=== PATIENT | male | born 1990 ===

== ENCOUNTER 2020-07-31 00:33 | Emergency (ER) | payer MEDICAID, SELFPAY ==
[2020-07-31 00:55] VITALS: BP 119/87; PULSE 97; RESP 16; TEMP 37.3; O2SAT 97; BMI 33.4
--- NOTE | 2020-07-31 01:06 | XR_ITS ---
EXAMINATION: CHEST 1 VIEW CLINICAL INFORMATION: Cough. COMPARISON: 05/02/2019. TECHNIQUE: An AP view of the chest is provided. FINDINGS: The cardiac silhouette is not enlarged. The mediastinal and hilar contours are unremarkable. There are neither pleural effusions nor pneumothoraces. There is mild streaky left suprahilar airspace disease. The osseous structures are unremarkable. XR/XR chest 1V IMPRESSION: Mild streaky left suprahilar airspace disease. This is nonspecific and could correspond to atelectasis or developing infiltrate. Recommendation is for a followup chest series to be obtained following treatment and/or resolution of symptoms to assure resolution of this appearance.
--- NOTE | 2020-07-31 01:08 | ED.GENADULT ---
HPI - General Adult General Chief complaint: Upper Respiratory Symptoms Stated complaint: Covid symptoms Time Seen by Provider: 07/31/20 00:55 Source: patient Mode of arrival: ambulatory Limitations: no limitations History of Present Illness HPI narrative: Patient comes emergency room complaining body aches, bilateral eye burning and irritation, sore throat. Patient states that his asthma has not been well controlled over the last few days, using his inhaler almost every 4 hours with no significant relief. MD complaint: Flu-like symptoms, asthma exacerbation Related Data Previous Rx's Medication Instructions Recorded azithromycin 250 mg PO DAILY 4 Days #4 tab 07/31/20 prednisone 50 mg PO DAILY #4 tab 07/31/20 Allergies Allergy/AdvReac Type Severity Reaction Status Date / Time trazodone Allergy Unknown itching, Verified 12/24/15 00:00 rash Review of Systems Review of Systems: Constitutional : Patient complaining of generalized fatigue, malaise, no fever ENT/Mouth : No Hearing loss, No Ear Pain, No Nasal Congestion, No Sinus Pain, No Hoarseness, No sore throat, No Rhinorrhea, No Swallowing Difficulty Eyes: No Eye Pain, No Swelling, complaining of burning and bilateral Redness, No Foreign Body, No Discharge, No Vision Changes Cardiovascular : No Chest Pain, No SOB, No Dyspnea on Exertion, No Orthopnea, No Edema, No Palpitations Respiratory : Complaining of cough, frequent asthma exacerbations over the last couple of days No Smoke Exposure, No Dyspnea Gastrointestinal : No Nausea, No Vomiting, No Diarrhea, No Constipation, No abdominal Pain, No Hematochezia, No Melena Genitourinary : no irregular bleeding, No Dysuria, No Urinary Frequency, No Hematuria, No Urinary Incontinence, No Urgency, No Flank Pain, No Urinary Flow Changes, No Hesitancy Musculoskeletal : No joint pain, complaining of generalized Myalgias, No Joint Swelling Skin : No Skin Lesions, No rash Neuro : No Weakness, No Numbness, No Paresthesias, No Loss of Consciousness, No Dizziness, No Headache Psych : No Anxiety/Panic, No Depression, No SI/HI/AH/VH, No Social Issues, Heme/Lymph: No Bruising, No Bleeding,No Lymphadenopathy Endocrine : No Polyuria, No Polydipsia, No Temperature Intolerance PMF Past Medical History Medical History (Updated 07/31/20 @ 02:24 by Kelsey Lucero MD) Asthma HIV (human immunodeficiency virus infection) Social History Social History Alcohol intake: never Smoking Status: Unknown if ever smoked Advance Directives: No Physical Exam Vital Signs: Vital Signs: Last Vital Signs Temp 98.4 F 07/31/20 02:00 Pulse 79 07/31/20 02:00 Resp 14 07/31/20 02:00 BP 121/65 07/31/20 02:00 Pulse Ox 100 07/31/20 02:00 Body Mass Index 33.4 Appearance: Alert. Oriented X3. No acute distress. Eyes: Pupils equal, round and reactive to light. Conjunctival injection bilaterally ENT: Pharynx normal. Neck: Normal inspection. Neck supple. No lymph nodes noted. No crepitus CVS: Normal heart rate and rhythm. Pulses normal. Normal S1 and S2 Respiratory: No respiratory distress. Bilateral wheezing, fair air movement Abdomen: Soft and nontender. No rigidity. No distention. good BS x4 Skin: Skin warm and dry. Normal skin color. Normal skin turgor. Extremities: No lower extremity edema. No lower extremity edema. No Lacerations. No Rash Neuro: Oriented X 3. No motor deficit. No sensory deficit. Moving all extermities. No slurred speech. Course Course Course Narrative: Patient received 1 nebulization treatment and Solu-Medrol, patient feels better, oxygen saturation 99%, however he is still fairly wheezing. A 2nd nebulization is starting now. Influenza and COVID-19 results pending. Sign out given to Dr. Degroot. Disposition pending, likely discharge home Discharge Plan Discharge Clinical Impression: Asthma Qualifiers: Asthma severity: unspecified severity Asthma persistence: unspecified Asthma complication type: unspecified Qualified Code(s): J45.909 - Unspecified asthma, uncomplicated Upper respiratory infection Qualifiers: URI type: unspecified URI Qualified Code(s): J06.9 - Acute upper respiratory infection, unspecified Patient Disposition: Home, Self-Care Instructions: Asthma (ED) Additional Instructions: Please follow-up with your primary care physician tomorrow. If you have any worsening or new symptoms, please return to the emergency room or call 911 Prescriptions: New azithromycin 250 mg tablet 250 mg PO DAILY 4 Days Qty: 4 RF: 0 prednisone 50 mg tablet 50 mg PO DAILY Qty: 4 RF: 0
[2020-07-31] MEDS: Albuterol Sulfate (0.083%) 2.5 MG/3 ML VIAL.NEB 5 MG INHALE ×2 (01:55→02:46)
[2020-07-31] MEDS: methylPREDNISolone Sod Succ/PF 125 MG/2 ML VIAL IVPUSH (01:55)
[2020-07-31 02:00] VITALS: BP 121/65; PULSE 79; RESP 14; TEMP 36.9; O2SAT 100
[2020-07-31 02:17] VITALS: PULSE 88; O2SAT 97
[2020-07-31 02:42] LABS: Influenza A PCR NEGATIVE (Negative); Influenza B PCR NEGATIVE (Negative); Resp Syncy Virus RNA Qual PCR NEGATIVE (Negative); SARS COV2 PCR INHOUSE NEGATIVE (Negative)
[2020-07-31] MEDS: Azithromycin 500 MG TABLET PO (02:46)
[2020-07-31 02:49] VITALS: PULSE 90; RESP 22; O2SAT 99
[2020-07-31 03:59] VITALS: BP 104/35; PULSE 90; RESP 22; TEMP 36.9; O2SAT 95
[2020-07-31] MEDS: Magnesium Sulfate/H2O 2 GM/50 ML PIGGYBACK IV (04:11)
[2020-07-31] MEDS: Albuterol Sulfate 90 MCG 8 GM INHALER 2 PUFF INHALE (05:21)
== END 2020-07-31 05:35 | disposition home or self-care (01) ==
PROVIDERS: Emergency Provider Emergency Medicine
DX: M79.10 Myalgia, unspecified site (principal); H57.13 Ocular pain, bilateral; J45.909 Unspecified asthma, uncomplicated; J06.9 Acute upper respiratory infection, unspecified; Z20.828 Contact with and (suspected) exposure to other viral communicable diseases; Z21 Asymptomatic human immunodeficiency virus [HIV] infection status
CPT/HCPCS: 0241U; 71045; 96365; 96375; 99284; 99285; J2930; J3475

== ENCOUNTER 2020-10-04 12:33 | Outpatient (REF) | payer MEDICAID, SELFPAY | END 2020-10-04 12:34 | disposition home or self-care (01) | LOC: HO.LAB 12:33 | PROVIDERS: Visit Provider Internal Medicine | DX: Z20.822 Contact with and (suspected) exposure to COVID-19 (principal) | CPT/HCPCS: 36415; C9803; U0003; U0005 ==

== ENCOUNTER → 2021-02-26 20:28 | Outpatient (REF) | payer OTHER, SELFPAY | LOC: HO.SL 20:28 | PROVIDERS: Visit Provider Internal Medicine Geriatric Medicine | DX: G47.00 Insomnia, unspecified (principal); R06.83 Snoring; R40.0 Somnolence | CPT/HCPCS: 95810 ==

== ENCOUNTER 2021-04-16 20:20 | Emergency (ER) | payer OTHER, SELFPAY ==
--- NOTE | ~2021-04-16 | XR_ITS ---
EXAMINATION: XR CHEST CLINICAL INFORMATION: Cough COMPARISON: 07/31/2020 TECHNIQUE: Frontal view of the chest was obtained. FINDINGS: No significant abnormality is noted involving the heart, lungs, mediastinum, bony thorax or soft tissues. XR/XR chest 1V IMPRESSION: Unremarkable examination.
[2021-04-16 20:34] VITALS: BP 138/64; PULSE 93; RESP 18; TEMP 36.8; O2SAT 100; BMI 38.0
--- NOTE | 2021-04-16 21:45 | ED_ITS ---
HPI - URI/Sore Throat General Chief Complaint: Upper Respiratory Symptoms Stated Complaint: flu like Time Seen by Provider: 04/16/21 21:03 Source: patient Mode of arrival: ambulatory Limitations: no limitations History of Present Illness HPI Narrative: Patient with history of HIV with undetectable viral cough has not received COVID vaccine complaining of body aches shortness of breath for last 2- 3 days with frequent cough and postnasal drip with history of asthma using his inhaler without much relief Related Data Previous Rx's Medication Instructions Recorded albuterol sulfate 90 mcg/actuation 2 puff INHALATION Q6H PRN #18 g 07/31/20 aerosol inhaler (ProAir HFA) azithromycin 250 mg tablet 250 mg PO DAILY 4 Days #4 tab 07/31/20 ketorolac 0.5 % eye drops 1 drp OPHTHALMIC (EYE) QID #5 ml 07/31/20 prednisone 50 mg tablet 50 mg PO DAILY #4 tab 07/31/20 codeine 10 mg-guaifenesin 100 mg/5 10 ml PO Q4-6H PRN #237 ml 04/16/21 mL oral liquid prednisone 20 mg tablet 40 mg PO DAILY #10 tab 04/16/21 Allergies Allergy/AdvReac Type Severity Reaction Status Date / Time trazodone Allergy Unknown itching, Verified 12/24/15 00:00 rash Review of Systems Review of Systems: Yes all other systems are reviewed and are negative PMFSH Past Medical History Medical History Asthma HIV (human immunodeficiency virus infection) Surgical History No history of previous surgery Social History Social History Alcohol intake: never Advance Directives: No Advance Directives Information Provided: No Physical Exam Vital Signs: Vital Signs: Last Vital Signs Temp 98.7 F 04/16/21 22:25 Pulse 89 04/16/21 22:25 Resp 18 04/16/21 22:25 BP 123/67 04/16/21 22:25 Pulse Ox 94 04/16/21 22:25 Body Mass Index 38.0 Appearance: Alert. Oriented X3. No acute distress. ENT: Pharynx normal. Oral Mucosa moist nasal turbinates inflamed with clear discharge Neck: Normal inspection. Neck supple. CVS: Normal heart rate and rhythm. Pulses normal. Respiratory: No respiratory distress. Equal air entry bilateral, no wheezing/rales/rhonchi Abdomen: Soft and nontender. Bowel sounds are present, no mass palpable, no CVA tenderness Skin: Skin warm and dry. Normal skin color. Normal skin turgor. Extremities: No lower extremity edema. No calf tenderness Neuro: Oriented X 3. MDM - URI/Sore Throat Lab Data Attestation: I reviewed the patient's lab results. Labs: Lab Results 04/16/21 Range/Units 21:27 COVID-19 (JACKIE) Negative (Negative) COVID-19 Clin Com See Note Discharge Plan Discharge Clinical Impression: Acute asthmatic bronchitis Patient Disposition: Home, Self-Care Instructions: Asthma (ED) Additional Instructions: Continue your inhaler Take prednisone as advised Prescriptions: New prednisone 20 mg tablet 40 mg PO DAILY Qty: 10 RF: 0 codeine-guaifenesin 10-100 mg/5 mL liquid 10 ml PO Q4-6H PRN (Reason: cough) Qty: 237 RF: 0 No Action azithromycin 250 mg tablet 250 mg PO DAILY 4 Days Qty: 4 RF: 0 prednisone 50 mg tablet 50 mg PO DAILY Qty: 4 RF: 0 ketorolac 0.5 % drops 1 drp ophthalmic (eye) QID Qty: 5 RF: 0 albuterol sulfate [ProAir HFA] 90 mcg/actuation HFA aerosol inhaler 2 puff inhalation Q6H PRN (Reason: shortness of breath or wheezing) Qty: 18 RF: 2 Interventions: ED Discharge Assessment Last Done: 04/16/21 23:10 Discharge Date/Time: 04/16/21 23:11
[2021-04-16 22:25] VITALS: BP 123/67; PULSE 89; RESP 18; TEMP 37.1; O2SAT 94
[2021-04-16 22:52] LABS: COVID-19 Test Negative (Negative); IDNOW Serial# 9DD0AD1C
== END 2021-04-16 23:11 | disposition home or self-care (01) ==
PROVIDERS: Emergency Medicine; Emergency Provider Internal Medicine; PCP Internal Medicine Geriatric Medicine
DX: J45.909 Unspecified asthma, uncomplicated (principal); Z20.822 Contact with and (suspected) exposure to COVID-19; B20 Human immunodeficiency virus [HIV] disease
CPT/HCPCS: 36415; 71045; 87635; 99283

== ENCOUNTER 2021-07-15 10:07 | Emergency (ER) | payer OTHER, SELFPAY ==
--- NOTE | ~2021-07-15 | XR_ITS ---
EXAMINATION: XR CHEST CLINICAL INFORMATION: Cough, shortness of breath COMPARISON: Chest radiographs 04/16/2021, 07/31/2020, 05/02/2019 TECHNIQUE: 2 views of the chest were obtained. FINDINGS: The lungs are clear and there is no airspace consolidation or groundglass opacity. The costophrenic sulci are well-defined. No effusion. The heart is normal in size. The hilar and mediastinal contours and bony structures are unremarkable. XR/XR chest 2V IMPRESSION: Unremarkable examination.
--- NOTE | ~2021-07-15 | US_ITS ---
EXAMINATION: US ABDOMEN COMPLETE CLINICAL INFORMATION: Upper abdominal pain, nausea and vomiting. COMPARISON: None TECHNIQUE: Real-time imaging of the abdominal viscera. FINDINGS: PANCREAS: The head and body the pancreas are normal. The tail is not well visualized due to bowel gas. ABDOMINAL AORTA: The proximal, mid, and distal segments are normal in caliber. INFERIOR VENA CAVA: Visualized portions are normal. LIVER: Normal. The liver is normal in size. Parenchymal echogenicity is normal. No focal hepatic lesion. There is no intrahepatic biliary duct dilatation seen. GALLBLADDER: Normal. The gallbladder is physiologically distended without evidence of stones, sludge, polyps, wall thickening or pericholecystic fluid. COMMON BILE DUCT: Normal in caliber measuring 0.3 cm in diameter. RIGHT KIDNEY: Normal. No hydronephrosis. No renal calculi or focal parenchymal lesions. The kidney measures 10 cm in maximum dimension. LEFT KIDNEY: Normal. No hydronephrosis. No renal calculi or focal parenchymal lesions. The kidney measures 11 cm in maximum dimension. SPLEEN: Normal. The spleen measures 11 cm in maximum dimension. FREE FLUID: None. US/US abdomen complete IMPRESSION: Limited visualization of the tail of the pancreas otherwise unremarkable exam.
[2021-07-15 11:03] VITALS: BP 108/67; PULSE 72; RESP 18; TEMP 36.8; O2SAT 100; BMI 36.9
[2021-07-15 12:27] LABS: Basophils Percent Auto 0.5 % (0-2); Eosinophils Absolute Auto 0.2 X10*3/uL (0.0-0.4); Eosinophils Percent Auto 4.6 % (0-4); Hematocrit 38.7 % (42.0-52.0); Hemoglobin 13.5 g/dl (14.0-18.0); Imm Gran Abs Auto 0.01 X10*3/uL (0.00-0.03); Imm Gran Pct Auto 0.2 % (0.0-0.4); Lymphocytes Absolute Auto 1.5 X10*3/uL (1.2-4.9); Lymphocytes Percent Auto 36.8 % (20-40); MANUAL DIFF FLAG NO; Mean Corpuscular HGB Conc 34.9 g/dl (31.0-36.0); Mean Corpuscular Hemoglobin 29.9 pg (27.0-33.0); Mean Corpuscular Volume 85.6 fL (80.0-98.0); Mean Platelet Volume 9.1 fL (9.4-12.4); Monocytes Absolute Auto 0.3 X10*3/uL (0.1-1.2); Monocytes Percent Auto 7.7 % (2-11); Neutrophils Absolute Auto 2.1 x10*3/uL (2.0-8.3); Neutrophils Percent Auto 50.2 % (45-73); Platelet Count 229 X10*3/uL (160-400); Red Blood Count 4.52 X10*6/uL (4.60-5.80); Red Cell Distribution Width 12.9 % (11.0-16.0); White Blood Count 4.2 X10*3/uL (4.8-10.8)
[2021-07-15 12:45] LABS: Alanine Aminotransferase 17 U/L (0-40); Albumin Level 4.1 g/dL (3.5-5.0); Alkaline Phosphatase 117 U/L (39-117); Anion Gap 10 (12-20); Aspartate Amino Transferase 16 U/L (5-37); Bilirubin Total 0.6 mg/dL (0.0-1.0); Blood Urea Nitrogen 16 mg/dL (9-16); Calcium 8.5 mg/dL (8.4-10.2); Carbon Dioxide 19 mmol/L (22-29); Chloride 115 mmol/L (96-108); Creatinine Clr Calc Pharmacy 150.4; Estimated Glomerular Filt Rate > 60; Glucose Random 87 mg/dL (60-115); Potassium 3.9 mmol/L (3.3-5.1); Sodium 140 mmol/L (135-145)
[2021-07-15 12:48] LABS: COVID-19 Test Negative (Negative)
[2021-07-15 12:54] LABS: Appearance Urine CLEAR; Color Urine YELLOW; Glucose Urine UA NEG (NEG); Leukocyte Esterase Urine NEG (NEG); Nitrite Urine NEG (NEG); PH 7.5 (5.0-8.0); Specific Gravity - Urine 1.015 (1.005-1.025); Urine Blood NEG (NEG); Urine Ketones NEG (NEG); Urine Protein NEG (NEG-TRACE)
[2021-07-15] MEDS: LORazepam 1 MG TABLET PO (15:50)
[2021-07-15] MEDS: Acetaminophen 325 MG TABLET 975 MG PO (15:50)
[2021-07-15 15:53] VITALS: BP 124/68; PULSE 60; RESP 20; TEMP 36; O2SAT 98
--- NOTE | 2021-07-15 17:07 | ED.ABDPAIN ---
HPI - Abdominal Pain General Chief Complaint: Abdominal Pain Stated Complaint: N/V/D Time Seen by Provider: 07/15/21 15:03 Source: patient Mode of arrival: ambulatory Limitations: no limitations History of Present Illness HPI narrative: 30-year-old male with a past medical history of anxiety, asthma and HIV presenting to the ED with complaints of nausea/vomiting / diarrhea and abdominal pain at the epigastric area worse with eating for the past few days worse today. He also reports he has been having muscle aches and itchy throat and has had an episode of shaking yesterday. He reports that years ago he would get these episodes and he was unsure if they were seizures would take some medications to calm him down. I asked him if this medication was Ativan for anxiety and he reported that exactly with the medication was. He denies any fevers, chills, dizziness, headaches, neck pain /stiffness, trouble swallowing or breathing, ear pain, productive cough, chest pain, dyspnea on exertion, orthopnea, palpitations, radiation of the abdominal pain, back pain, rashes, dysuria, hematuria, abnormal penile discharge, recent travel or sick contacts or any other symptoms complaints or concerns at this time. MD elicited complaint: abdominal pain Pertinent past history: other ( See above) Onset (ago): day(s) ( few days worse today) Pain Consistency: constant Location: epigastric Severity: moderate Quality: cramping and aching Radiation: none Migration to: no migration Exacerbating factors: eating Relieving factors: nothing Associated symptoms: nausea, vomiting, diarrhea and other ( see above) Related Data Previous Rx's Medication Instructions Recorded albuterol sulfate 90 mcg/actuation 2 puff INHALATION Q6H PRN #18 g 07/31/20 aerosol inhaler (ProAir HFA) azithromycin 250 mg tablet 250 mg PO DAILY 4 Days #4 tab 07/31/20 ketorolac 0.5 % eye drops 1 drp OPHTHALMIC (EYE) QID #5 ml 07/31/20 prednisone 50 mg tablet 50 mg PO DAILY #4 tab 07/31/20 codeine 10 mg-guaifenesin 100 mg/5 10 ml PO Q4-6H PRN #237 ml 04/16/21 mL oral liquid prednisone 20 mg tablet 40 mg PO DAILY #10 tab 04/16/21 acetaminophen 300 mg-codeine 30 mg 1 tab PO Q8H PRN #10 tab 07/15/21 tablet lorazepam 1 mg tablet (Ativan) 1 mg PO TID PRN #10 tab 07/15/21 ondansetron HCl 4 mg tablet 4 mg PO Q8H PRN #14 tab 07/15/21 (Zofran) Allergies Allergy/AdvReac Type Severity Reaction Status Date / Time trazodone Allergy Unknown itching, Verified 07/15/21 11:03 rash Review of Systems Review of Systems Constitutional : No Weight loss, No Fever, No Chills, No Night Sweats, No Fatigue, No Malaise ENT/Mouth : No Hearing loss, No Ear Pain, No Nasal Congestion, No Sinus Pain, No Hoarseness, + sore throat, No Rhinorrhea, No Swallowing Difficulty Eyes: No Eye Pain, No Swelling, No Redness, No Foreign Body, No Discharge, No Vision Changes Cardiovascular : No Chest Pain, No SOB, No Dyspnea on Exertion, No Orthopnea, No Edema, No Palpitations Respiratory : + Cough, No Sputum, No Wheezing, No Smoke Exposure, No Dyspnea Gastrointestinal : + Nausea, + Vomiting, + Diarrhea, No Constipation, + abdominal Pain, No Hematochezia, No Melena Genitourinary : no irregular bleeding, No Dysuria, No Urinary Frequency, No Hematuria, No Urinary Incontinence, No Urgency, No Flank Pain, No Urinary Flow Changes, No Hesitancy Musculoskeletal : No joint pain, No Myalgias, No Joint Swelling Skin : No Skin Lesions, No rash Neuro : No Weakness, No Numbness, No Paresthesias, No Loss of Consciousness, No Dizziness, No Headache Psych : + Anxiety/Panic, No Depression, No SI/HI/AH/VH, No Social Issues, Heme/Lymph: No Bruising, No Bleeding,No Lymphadenopathy Endocrine : No Polyuria, No Polydipsia, No Temperature Intolerance Yes all other systems are reviewed and are negative Physical Exam Vital Signs: Vital Signs: Last Vital Signs Temp 96.8 F 07/15/21 15:53 Pulse 60 07/15/21 15:53 Resp 20 07/15/21 15:53 BP 124/68 07/15/21 15:53 Pulse Ox 98 07/15/21 15:53 BMI result Body Mass Index 36.9 vital signs have been reviewed as normal and appeared to be correct. Blood pressure normal. Heart rate normal. Respiration rate normal. Temperature normal. Oxygen saturation normal. Appearance: Alert. Oriented X3. No acute distress. Head: Normal external exam. Normocephalic. Eyes: PERRLA. EOMI. Conjunctiva and sclera normal. Eyelids normal. ENT: Pharynx normal. Uvula midline. Moist mucous membranes. No trismus noted. No drooling noted. No muffled voice noted. Neck: Normal inspection. Neck supple. FROM. No adenopathy. No meningeal signs. CVS: Normal heart rate and rhythm. Heart sound normal. No murmurs noted. Pulses normal throughout. Respiratory: No respiratory distress. Painless inspiration. Breath sounds normal. No wheezes/rales/rhonchi noted. Chest nontender. No accessory muscle usage noted or decreased air movement noted. Abdomen: Soft and mild tenderness up patient's epigastric area. Nondistended. No guarding. No rigidity. Bowel sounds normal in all 4 quadrants. No distention noted. No organomegaly noted. No visible injury noted. No rebound tenderness. Negative Rovsing sign. Negative obturator's sign. Negative psoas sign. Negative [place] sign. Back: No CVA tenderness. Full range of motion noted. Skin: Skin warm and dry. Normal skin color. Normal skin turgor. No rashes/lesions/lacerations noted. Extremities: Extremities exhibit normal range of motion. Extremities nontender. Neuro: Oriented X 3. No motor deficit. No sensory deficit. Reflexes normal. Normal steady gait. Course Course Course Narrative: 30-year-old male with a past medical history of anxiety, asthma and HIV presenting to the ED with complaints of nausea/vomiting / diarrhea and abdominal pain at the epigastric area worse with eating for the past few days worse today. He also reports he has been having muscle aches and itchy throat and has had an episode of shaking yesterday. He reports that years ago he would get these episodes and he was unsure if they were seizures would take some medications to calm him down. I asked him if this medication was Ativan for anxiety and he reported that exactly with the medication was. Labs obtained and patient with a white blood cell count of 4000. Mild anemia. Chloride 115. Carbon dioxide 19. Anion gap 10. Otherwise all other labs are within normal limits. UA within normal limits no evidence of UTI. COVID swab negative. Chest x-ray within normal limits no acute processes noted. Abdominal ultrasound complete within normal limits no acute processes are noted. Therefore patient most likely viral syndrome / gastroenteritis / bronchitis. Although I did offer a CT scan abdomen pelvis to evaluate for any other acute processes although patient declined this reports that he just wants to go home and eat and he is not having any pain anywhere else in his abdomen. Therefore Will DC home with symptomatic treatment instructions return if any new or worsening symptoms to follow-up with primary care provider. Patient understands agrees with this plan. MDM - Abdominal Pain Medical Records Attestation: I reviewed the patient's medical records. Lab Data Attestation: I reviewed the patient's lab results. Result diagrams: 07/15/21 12:20 07/15/21 12:20 Labs: Lab Results 07/15/21 07/15/21 07/15/21 Range/Units 12:19 12:20 12:20 WBC 4.2 L (4.8-10.8) X10*3/uL RBC 4.52 L (4.60-5.80) X10*6/uL Hgb 13.5 L (14.0-18.0) g/dl Hct 38.7 L (42.0-52.0) % MCV 85.6 (80.0-98.0) fL MCH 29.9 (27.0-33.0) pg MCHC 34.9 (31.0-36.0) g/dl RDW 12.9 (11.0-16.0) % Plt Count 229 (160-400) X10*3/uL MPV 9.1 L (9.4-12.4) fL Immature Gran % (Auto) 0.2 (0.0-0.4) % Neut % (Auto) 50.2 (45-73) % Lymph % (Auto) 36.8 (20-40) % [place] % (Auto) 7.7 (2-11) % Eos % (Auto) 4.6 H (0-4) % Baso % (Auto) 0.5 (0-2) % Lymph # (Auto) 1.5 (1.2-4.9) X10*3/uL [place] # (Auto) 0.3 (0.1-1.2) X10*3/uL Eos # (Auto) 0.2 (0.0-0.4) X10*3/uL Baso # (Auto) 0.0 (0.0-0.2) X10*3/uL Abs Immat Gran (auto) 0.01 (0.00-0.03) X10*3/uL Absolute Neuts (auto) 2.1 (2.0-8.3) x10*3/uL Absolute Nucleated RBC 0.000 (0.0-0.012) X10*3/uL Nucleated RBC % (auto) 0.0 (0.0-0.2) /100WBC Sodium 140 (135-145) mmol/L Potassium 3.9 (3.3-5.1) mmol/L Chloride 115 H (96-108) mmol/L Carbon Dioxide 19 L (22-29) mmol/L Anion Gap 10 L (12-20) BUN 16 (9-16) mg/dL Creatinine 0.88 (0.5-1.4) mg/dL Estim Creat Clear Calc 150.4 Estimated GFR > 60 Random Glucose 87 (60-115) mg/dL Calcium 8.5 (8.4-10.2) mg/dL Total Bilirubin 0.6 (0.0-1.0) mg/dL AST 16 (5-37) U/L ALT 17 (0-40) U/L Alkaline Phosphatase 117 (39-117) U/L Total Protein 6.0 L (6.5-8.0) g/dL Albumin 4.1 (3.5-5.0) g/dL Urine Color Urine Appearance Urine pH (5.0-8.0) Ur Specific [place] (1.005-1.025) Urine Protein (NEG-TRACE) MG/DL Urine Glucose (UA) (NEG) MG/DL Urine Ketones (NEG) MG/DL Urine Blood (NEG) Urine Nitrite (NEG) Ur Leukocyte Esterase (NEG) COVID-19 (JACKIE) Negative (Negative) COVID-19 Clin Com See Note 07/15/21 Range/Units 12:41 WBC (4.8-10.8) X10*3/uL RBC (4.60-5.80) X10*6/uL Hgb (14.0-18.0) g/dl Hct (42.0-52.0) % MCV (80.0-98.0) fL MCH (27.0-33.0) pg MCHC (31.0-36.0) g/dl RDW (11.0-16.0) % Plt Count (160-400) X10*3/uL MPV (9.4-12.4) fL Immature Gran % (Auto) (0.0-0.4) % Neut % (Auto) (45-73) % Lymph % (Auto) (20-40) % [place] % (Auto) (2-11) % Eos % (Auto) (0-4) % Baso % (Auto) (0-2) % Lymph # (Auto) (1.2-4.9) X10*3/uL [place] # (Auto) (0.1-1.2) X10*3/uL Eos # (Auto) (0.0-0.4) X10*3/uL Baso # (Auto) (0.0-0.2) X10*3/uL Abs Immat Gran (auto) (0.00-0.03) X10*3/uL Absolute Neuts (auto) (2.0-8.3) x10*3/uL Absolute Nucleated RBC (0.0-0.012) X10*3/uL Nucleated RBC % (auto) (0.0-0.2) /100WBC Sodium (135-145) mmol/L Potassium (3.3-5.1) mmol/L Chloride (96-108) mmol/L Carbon Dioxide (22-29) mmol/L Anion Gap (12-20) BUN (9-16) mg/dL Creatinine (0.5-1.4) mg/dL Estim Creat Clear Calc Estimated GFR Random Glucose (60-115) mg/dL Calcium (8.4-10.2) mg/dL Total Bilirubin (0.0-1.0) mg/dL AST (5-37) U/L ALT (0-40) U/L Alkaline Phosphatase (39-117) U/L Total Protein (6.5-8.0) g/dL Albumin (3.5-5.0) g/dL Urine Color YELLOW Urine Appearance CLEAR Urine pH 7.5 (5.0-8.0) Ur Specific [place] 1.015 (1.005-1.025) Urine Protein NEG (NEG-TRACE) MG/DL Urine Glucose (UA) NEG (NEG) MG/DL Urine Ketones NEG (NEG) MG/DL Urine Blood NEG (NEG) Urine Nitrite NEG (NEG) Ur Leukocyte Esterase NEG (NEG) COVID-19 (JACKIE) (Negative) COVID-19 Clin Com Imaging Data Chest x-ray: Attestation: I personally reviewed and interpreted this imaging study as follows: Radiologist's impression: FINDINGS: The lungs are clear and there is no airspace consolidation or groundglass opacity. The costophrenic sulci are well-defined. No effusion. The heart is normal in size. The hilar and mediastinal contours and bony structures are unremarkable. XR/XR chest 2V IMPRESSION: Unremarkable examination. abdominal US: Attestation: I personally reviewed and interpreted this imaging study as follows: Radiologist's impression: FINDINGS: PANCREAS: The head and body the pancreas are normal. The tail is not well visualized due to bowel gas. ABDOMINAL AORTA: The proximal, mid, and distal segments are normal in caliber. INFERIOR VENA CAVA: Visualized portions are normal. LIVER: Normal. The liver is normal in size. Parenchymal echogenicity is normal. No focal hepatic lesion. There is no intrahepatic biliary duct dilatation seen. GALLBLADDER: Normal. The gallbladder is physiologically distended without evidence of stones, sludge, polyps, wall thickening or pericholecystic fluid. COMMON BILE DUCT: Normal in caliber measuring 0.3 cm in diameter. RIGHT KIDNEY: Normal. No hydronephrosis. No renal calculi or focal parenchymal lesions. The kidney measures 10 cm in maximum dimension. LEFT KIDNEY: Normal. No hydronephrosis. No renal calculi or focal parenchymal lesions. The kidney measures 11 cm in maximum dimension. SPLEEN: Normal. The spleen measures 11 cm in maximum dimension. FREE FLUID: None. US/US abdomen complete IMPRESSION: Limited visualization of the tail of the pancreas otherwise unremarkable exam. Discharge Plan Discharge Clinical Impression: Gastroenteritis, Abdominal pain, acute, epigastric, Nausea & vomiting, Bronchitis Patient Disposition: Home, Self-Care Instructions: Gastroenteritis (ED), Acute Bronchitis (ED), Acute Nausea and Vomiting (ED), Epigastric Pain (ED) Prescriptions: New ondansetron HCl [Zofran] 4 mg tablet 4 mg PO Q8H PRN (Reason: nausea and vomiting) Qty: 14 RF: 0 acetaminophen-codeine 300-30 mg tablet 1 tab PO Q8H PRN (Reason: pain) Qty: 10 RF: 0 lorazepam [Ativan] 1 mg tablet 1 mg PO TID PRN (Reason: anxiety) Qty: 10 RF: 0 No Action azithromycin 250 mg tablet 250 mg PO DAILY 4 Days Qty: 4 RF: 0 prednisone 50 mg tablet 50 mg PO DAILY Qty: 4 RF: 0 ketorolac 0.5 % drops 1 drp ophthalmic (eye) QID Qty: 5 RF: 0 albuterol sulfate [ProAir HFA] 90 mcg/actuation HFA aerosol inhaler 2 puff inhalation Q6H PRN (Reason: shortness of breath or wheezing) Qty: 18 RF: 2 prednisone 20 mg tablet 40 mg PO DAILY Qty: 10 RF: 0 codeine-guaifenesin 10-100 mg/5 mL liquid 10 ml PO Q4-6H PRN (Reason: cough) Qty: 237 RF: 0 Referrals: Lisette,MD Dwaine [Primary Care Provider] - 2 days Stand Alone Forms: Work/School Release Print Language: Bengali [facility] Past Medical History Attestation statement: The following information was validated with the patient. Medical History Asthma HIV (human immunodeficiency virus infection) Surgical History No history of previous surgery Social History Social History Alcohol intake: never Patient Tobacco Use Status: Current everyday Tobacco user Use of substances other than those prescribed or required for medical reasons: No Advance Directives: No Advance Directives Information Provided: Yes
== END 2021-07-15 17:33 | disposition home or self-care (01) ==
PROVIDERS: Emergency Provider Emergency Medicine; PCP Internal Medicine Geriatric Medicine
DX: K52.9 Noninfective gastroenteritis and colitis, unspecified (principal); J40 Bronchitis, not specified as acute or chronic; Z20.822 Contact with and (suspected) exposure to COVID-19; R11.2 Nausea with vomiting, unspecified; R10.13 Epigastric pain; B20 Human immunodeficiency virus [HIV] disease
CPT/HCPCS: 36415; 71046; 76700; 80053; 81003; 85025; 87635; 99284

== ENCOUNTER 2021-07-17 12:40 | Outpatient (REF) | payer OTHER, SELFPAY ==
[2021-07-17 15:29] LABS: COVID-19 Test Negative (Negative)
== END 2021-07-17 12:41 | disposition home or self-care (01) ==
LOC: HO.LAB 12:40
PROVIDERS: Visit Provider Internal Medicine
DX: Z20.822 Contact with and (suspected) exposure to COVID-19 (principal)
CPT/HCPCS: 36415; 87635; C9803

== ENCOUNTER 2021-08-10 03:11 | Emergency (ER) | payer OTHER, SELFPAY ==
[2021-08-10 03:15] VITALS: BMI 30.7
--- NOTE | 2021-08-10 03:46 | ED.ANXIETY ---
HPI - Anxiety General Chief Complaint: Anxiety Stated Complaint: SEIZURE AND ANXIETY ATTACK PER EMS Time Seen by Provider: 08/10/21 03:42 Source: patient and EMS Mode of arrival: EMS Limitations: no limitations History of Present Illness HPI narrative: Patient comes to the emergency room complaining of ID on a possible seizure. Patient states that he has been drinking, states that he is very emotional because it is the 1st time that he has an ankle bracelet and is unable to celebrate new year's with his family. Patient states that he has seizure, urinated in his pants. Family members state that patient had another seizure while EMS was present. EMS states that the patient was awake, alert and talking during the ?seizure?. At this time, patient states that he feels very tired and very emotional. Patient states that his hands and feet bilaterally feel crampy. Patient states that he has had seizures in the past and that the sensation he has after a seizure, takes a few hours for her hands and feet to relax. Related Data Previous Rx's Medication Instructions Recorded albuterol sulfate 90 mcg/actuation 2 puff INHALATION Q6H PRN #18 g 07/31/20 aerosol inhaler (ProAir HFA) azithromycin 250 mg tablet 250 mg PO DAILY 4 Days #4 tab 07/31/20 ketorolac 0.5 % eye drops 1 drp OPHTHALMIC (EYE) QID #5 ml 07/31/20 prednisone 50 mg tablet 50 mg PO DAILY #4 tab 07/31/20 codeine 10 mg-guaifenesin 100 mg/5 10 ml PO Q4-6H PRN #237 ml 04/16/21 mL oral liquid prednisone 20 mg tablet 40 mg PO DAILY #10 tab 04/16/21 acetaminophen 300 mg-codeine 30 mg 1 tab PO Q8H PRN #10 tab 07/15/21 tablet lorazepam 1 mg tablet (Ativan) 1 mg PO TID PRN #10 tab 07/15/21 ondansetron HCl 4 mg tablet 4 mg PO Q8H PRN #14 tab 07/15/21 (Zofran) Allergies Allergy/AdvReac Type Severity Reaction Status Date / Time trazodone Allergy Unknown itching, Verified 07/15/21 11:03 rash Review of Systems Review of Systems: Constitutional : No Weight loss, No Fever, No Chills, No Night Sweats, No Fatigue, No Malaise ENT/Mouth : No Hearing loss, No Ear Pain, No Nasal Congestion, No Sinus Pain, No Hoarseness, No sore throat, No Rhinorrhea, No Swallowing Difficulty Eyes: No Eye Pain, No Swelling, No Redness, No Foreign Body, No Discharge, No Vision Changes Cardiovascular : No Chest Pain, No SOB, No Dyspnea on Exertion, No Orthopnea, No Edema, No Palpitations Respiratory : No Cough, No Sputum, No Wheezing, No Smoke Exposure, No Dyspnea Gastrointestinal : No Nausea, No Vomiting, No Diarrhea, No Constipation, No abdominal Pain, No Hematochezia, No Melena Genitourinary : no irregular bleeding, No Dysuria, No Urinary Frequency, No Hematuria, No Urinary Incontinence, No Urgency, No Flank Pain, No Urinary Flow Changes, No Hesitancy Musculoskeletal : No joint pain, No Myalgias, No Joint Swelling Skin : No Skin Lesions, No rash Neuro : No Weakness, No Numbness, No Paresthesias, No Loss of Consciousness, No Dizziness, No Headache complaining of a stress-induced seizure. Psych : Complaining of anxiety, panic attack, No Depression, No SI/HI/AH/VH, No Social Issues, Heme/Lymph: No Bruising, No Bleeding,No Lymphadenopathy Endocrine : No Polyuria, No Polydipsia, No Temperature Intolerance PMFSH Past Medical History Medical History Asthma HIV (human immunodeficiency virus infection) Surgical History No history of previous surgery Social History Social History Alcohol intake: never Patient Tobacco Use Status: Current everyday Tobacco user Advance Directives: No Physical Exam Vital Signs: Vital Signs: Last Vital Signs Temp 97.8 F 08/10/21 03:47 Pulse 96 08/10/21 03:47 Resp 18 08/10/21 03:47 BP 127/80 08/10/21 03:47 Pulse Ox 96 08/10/21 03:47 BMI result Body Mass Index 30.7 Const: Other: Appearance: Alert. Oriented X3. No acute distress. Eyes: Pupils equal, round and reactive to light. ENT: Pharynx normal. Neck: Normal inspection. Neck supple. No lymph nodes noted. No crepitus CVS: Normal heart rate and rhythm. Pulses normal. Normal S1 and S2 Respiratory: No respiratory distress. Breath sounds normal. No Wheezing. No rales Abdomen: Soft and nontender. No rigidity. No distention. good BS x4 Skin: Skin warm and dry. Normal skin color. Normal skin turgor. Extremities: No lower extremity edema. No lower extremity edema. No Lacerations. No Rash Neuro: Oriented X 3. No motor deficit. No sensory deficit. Moving all extermities. No slurred speech. Cranial nerves 2-12 grossly intact Psych: Teary, anxious Course Course Course Narrative: Patient's lactic acidosis is likely secondary due to a possible seizure that the patient may have had versus secondary to alcohol consumption. At this time sepsis not suspected. Patient is able to ambulate unassisted. Patient did not provide a urine sample. Patient instructed to follow-up with his primary care physician and neurologist. Patient states that he has not used any medication for seizure for over a year. MDM - Anxiety Lab Data Result diagrams: 08/10/21 04:02 08/10/21 04:02 Labs: Lab Results 08/10/21 08/10/21 08/10/21 Range/Units 04:02 04:02 04:02 WBC 4.5 L (4.8-10.8) X10*3/uL RBC 4.76 (4.60-5.80) X10*6/uL Hgb 14.2 (14.0-18.0) g/dl Hct 40.4 L (42.0-52.0) % MCV 84.9 (80.0-98.0) fL MCH 29.8 (27.0-33.0) pg MCHC 35.1 (31.0-36.0) g/dl RDW 12.9 (11.0-16.0) % Plt Count 249 (160-400) X10*3/uL MPV 9.3 L (9.4-12.4) fL Immature Gran % (Auto) 0.0 (0.0-0.4) % Neut % (Auto) 42.9 L (45-73) % Lymph % (Auto) 44.0 H (20-40) % [place] % (Auto) 8.4 (2-11) % Eos % (Auto) 4.0 (0-4) % Baso % (Auto) 0.7 (0-2) % Lymph # (Auto) 2.0 (1.2-4.9) X10*3/uL [place] # (Auto) 0.4 (0.1-1.2) X10*3/uL Eos # (Auto) 0.2 (0.0-0.4) X10*3/uL Baso # (Auto) 0.0 (0.0-0.2) X10*3/uL Abs Immat Gran (auto) 0.00 (0.00-0.03) X10*3/uL Absolute Neuts (auto) 1.9 L (2.0-8.3) x10*3/uL Absolute Nucleated RBC 0.000 (0.0-0.012) X10*3/uL Nucleated RBC % (auto) 0.0 (0.0-0.2) /100WBC Sodium 141 (135-145) mmol/L Potassium 3.6 (3.3-5.1) mmol/L Chloride 113 H (96-108) mmol/L Carbon Dioxide 18 L (22-29) mmol/L Anion Gap 14 (12-20) BUN 12 (9-16) mg/dL Creatinine 1.13 (0.5-1.4) mg/dL Estim Creat Clear Calc 100.2 Estimated GFR > 60 Random Glucose 87 (60-115) mg/dL Lactic Acid 2.5 H* (0.5-2.0) mmol/L Calcium 8.8 (8.4-10.2) mg/dL Total Bilirubin 0.6 (0.0-1.0) mg/dL Direct Bilirubin 0.2 (0.0-0.5) mg/dL AST 13 (5-37) U/L ALT 14 (0-40) U/L Alkaline Phosphatase 154 H D (39-117) U/L Total Protein 6.5 (6.5-8.0) g/dL Albumin 4.5 (3.5-5.0) g/dL Ethyl Alcohol mg/dL 08/10/21 Range/Units 04:02 WBC (4.8-10.8) X10*3/uL RBC (4.60-5.80) X10*6/uL Hgb (14.0-18.0) g/dl Hct (42.0-52.0) % MCV (80.0-98.0) fL MCH (27.0-33.0) pg MCHC (31.0-36.0) g/dl RDW (11.0-16.0) % Plt Count (160-400) X10*3/uL MPV (9.4-12.4) fL Immature Gran % (Auto) (0.0-0.4) % Neut % (Auto) (45-73) % Lymph % (Auto) (20-40) % [place] % (Auto) (2-11) % Eos % (Auto) (0-4) % Baso % (Auto) (0-2) % Lymph # (Auto) (1.2-4.9) X10*3/uL [place] # (Auto) (0.1-1.2) X10*3/uL Eos # (Auto) (0.0-0.4) X10*3/uL Baso # (Auto) (0.0-0.2) X10*3/uL Abs Immat Gran (auto) (0.00-0.03) X10*3/uL Absolute Neuts (auto) (2.0-8.3) x10*3/uL Absolute Nucleated RBC (0.0-0.012) X10*3/uL Nucleated RBC % (auto) (0.0-0.2) /100WBC Sodium (135-145) mmol/L Potassium (3.3-5.1) mmol/L Chloride (96-108) mmol/L Carbon Dioxide (22-29) mmol/L Anion Gap (12-20) BUN (9-16) mg/dL Creatinine (0.5-1.4) mg/dL Estim Creat Clear Calc Estimated GFR Random Glucose (60-115) mg/dL Lactic Acid (0.5-2.0) mmol/L Calcium (8.4-10.2) mg/dL Total Bilirubin (0.0-1.0) mg/dL Direct Bilirubin (0.0-0.5) mg/dL AST (5-37) U/L ALT (0-40) U/L Alkaline Phosphatase (39-117) U/L Total Protein (6.5-8.0) g/dL Albumin (3.5-5.0) g/dL Ethyl Alcohol 108 mg/dL Discharge Plan Discharge Clinical Impression: Anxiety, Seizure Patient Disposition: Home, Self-Care Instructions: Anxiety (ED), Generalized Tonic Clonic Seizures (ED) Additional Instructions: Please follow-up with your primary care physician and neurologist tomorrow. If you have any worsening or new symptoms, please return to the emergency room or call 911 Prescriptions: No Action azithromycin 250 mg tablet 250 mg PO DAILY 4 Days Qty: 4 RF: 0 prednisone 50 mg tablet 50 mg PO DAILY Qty: 4 RF: 0 ketorolac 0.5 % drops 1 drp ophthalmic (eye) QID Qty: 5 RF: 0 albuterol sulfate [ProAir HFA] 90 mcg/actuation HFA aerosol inhaler 2 puff inhalation Q6H PRN (Reason: shortness of breath or wheezing) Qty: 18 RF: 2 prednisone 20 mg tablet 40 mg PO DAILY Qty: 10 RF: 0 codeine-guaifenesin 10-100 mg/5 mL liquid 10 ml PO Q4-6H PRN (Reason: cough) Qty: 237 RF: 0 ondansetron HCl [Zofran] 4 mg tablet 4 mg PO Q8H PRN (Reason: nausea and vomiting) Qty: 14 RF: 0 acetaminophen-codeine 300-30 mg tablet 1 tab PO Q8H PRN (Reason: pain) Qty: 10 RF: 0 lorazepam [Ativan] 1 mg tablet 1 mg PO TID PRN (Reason: anxiety) Qty: 10 RF: 0
[2021-08-10 03:47] VITALS: BP 127/80; PULSE 96; RESP 18; TEMP 36.6; O2SAT 96
[2021-08-10 04:08] LABS: Basophils Percent Auto 0.7 % (0-2); Eosinophils Absolute Auto 0.2 X10*3/uL (0.0-0.4); Hematocrit 40.4 % (42.0-52.0); Hemoglobin 14.2 g/dl (14.0-18.0); MANUAL DIFF FLAG NO; Mean Corpuscular HGB Conc 35.1 g/dl (31.0-36.0); Mean Corpuscular Hemoglobin 29.8 pg (27.0-33.0); Mean Corpuscular Volume 84.9 fL (80.0-98.0); Mean Platelet Volume 9.3 fL (9.4-12.4); Monocytes Absolute Auto 0.4 X10*3/uL (0.1-1.2); Monocytes Percent Auto 8.4 % (2-11); Neutrophils Absolute Auto 1.9 x10*3/uL (2.0-8.3); Neutrophils Percent Auto 42.9 % (45-73); Platelet Count 249 X10*3/uL (160-400); Red Blood Count 4.76 X10*6/uL (4.60-5.80); Red Cell Distribution Width 12.9 % (11.0-16.0); White Blood Count 4.5 X10*3/uL (4.8-10.8)
[2021-08-10 04:22] LABS: Ethanol 108 mg/dL
[2021-08-10 04:26] LABS: Alanine Aminotransferase 14 U/L (0-40); Albumin Level 4.5 g/dL (3.5-5.0); Alkaline Phosphatase 154 U/L (39-117); Anion Gap 14 (12-20); Aspartate Amino Transferase 13 U/L (5-37); Bilirubin Direct 0.2 mg/dL (0.0-0.5); Bilirubin Total 0.6 mg/dL (0.0-1.0); Blood Urea Nitrogen 12 mg/dL (9-16); Calcium 8.8 mg/dL (8.4-10.2); Carbon Dioxide 18 mmol/L (22-29); Chloride 113 mmol/L (96-108); Creatinine Clr Calc Pharmacy 100.2; Estimated Glomerular Filt Rate > 60; Glucose Random 87 mg/dL (60-115); Potassium 3.6 mmol/L (3.3-5.1); Sodium 141 mmol/L (135-145); Total Protein 6.5 g/dL (6.5-8.0)
[2021-08-10 04:28] LABS: Lactic Acid 2.5 mmol/L (0.5-2.0)
== END 2021-08-10 04:58 | disposition home or self-care (01) ==
PROVIDERS: Emergency Provider Emergency Medicine
DX: R56.9 Unspecified convulsions (principal); F41.1 Generalized anxiety disorder; F43.0 Acute stress reaction; F17.200 Nicotine dependence, unspecified, uncomplicated; Z71.6 Tobacco abuse counseling; Z79.899 Other long term (current) drug therapy
CPT/HCPCS: 36415; 80048; 80076; 82077; 83605; 85025; 99283

== ENCOUNTER 2021-12-25 14:57 | Emergency (ER) | payer OTHER, SELFPAY ==
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
--- NOTE | ~2021-12-25 | CT_ITS ---
Indication: Injury EXAMINATION: CT spine, CT brain. Axial imaging with coronal and sagittal reformatted images. This CT examination was performed using dose optimization techniques as appropriate, variously including the following: *Automated exposure control *Adjustment of mA and/or kV according to patient size (this includes techniques or standardized protocols for targeted exams where dose is matched to indication/reason for exam; i.e. extremities or head) *Use of iterative reconstruction technique. Radiation dose [address] brain; There is no midline shift. There is no mass effect. There is no hemorrhage. The basal cisterns appear patent. The posterior fossa is grossly within normal limits. There is no extra-axial collection. There is a linear area of high attenuation within the right parenchyma. This appears serpiginous and I suspect that this is a vessel coursing through the white matter in the posterior parietal region. 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 There is no adjacent edema The ventricular system is within normal limits. Sinus disease is noted. There is no fracture on the bone windows. Cervical spine; No acute fracture or dislocation. Some straightening of the normal lordosis. May be due to position or spasm. CT/CT cervical spine wo con IMPRESSION: Negative acute noncontrast CT of the brain. 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 Recommend pre and postcontrast MRI of the brain for full evaluation. There is no fracture or dislocation in the cervical spine. Some straightening of the normal lordosis may be due to position or spasm.
[2021-12-25 15:04] VITALS: BP 130/90; PULSE 95; O2SAT 97
[2021-12-25 15:05] VITALS: BP 120/82; PULSE 76; RESP 16; TEMP 36.3; O2SAT 98; BMI 34.5
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
[2021-12-25] MEDS: Acetaminophen 325 MG TABLET 975 MG PO (15:45)
[2021-12-25 17:34] VITALS: BP 118/81; PULSE 86; RESP 16; TEMP 36.9; O2SAT 98
== END 2021-12-25 17:38 | disposition home or self-care (01) ==
PROVIDERS: Emergency Provider Internal Medicine; PCP Internal Medicine Geriatric Medicine
DX: Z04.1 Encounter for examination and observation following transport accident (principal); M25.511 Pain in right shoulder; M54.2 Cervicalgia; R07.89 Other chest pain; R93.0 Abnormal findings on diagnostic imaging of skull and head, not elsewhere classified
CPT/HCPCS: 70450; 71046; 72125; 73030; 99284

== ENCOUNTER 2022-01-09 15:33 | Emergency (ER) | payer OTHER, SELFPAY ==
[2022-01-09 15:40] VITALS: BP 121/70; PULSE 88; RESP 18; TEMP 36.6; O2SAT 98; BMI 30.4
[2022-01-09] MEDS: Acetaminophen 325 MG TABLET 650 MG PO (15:44)
[2022-01-09 20:25] VITALS: BP 120/78; PULSE 75; RESP 18; TEMP 36.7; O2SAT 100
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
== END 2022-01-09 21:52 | disposition home or self-care (01) ==
PROVIDERS: Emergency Provider Emergency Medicine; PCP Internal Medicine Geriatric Medicine
DX: S00.83XA Contusion of other part of head, initial encounter (principal); J45.909 Unspecified asthma, uncomplicated; Z21 Asymptomatic human immunodeficiency virus [HIV] infection status; Y04.2XXA Assault by strike against or bumped into by another person, initial encounter; Y93.9 Activity, unspecified; Y92.9 Unspecified place or not applicable; Y99.9 Unspecified external cause status
CPT/HCPCS: 99283; 99284

== ENCOUNTER 2022-12-27 15:46 | Emergency (ER) | payer OTHER, SELFPAY ==
[2022-12-27 16:13] VITALS: BP 128/55; PULSE 97; RESP 16; TEMP 36.9; O2SAT 98; BMI 28.4
--- NOTE | 2022-12-27 16:14 | ED.GENADULT ---
HPI - General Adult General Chief complaint: Skin/Abscess/Foreign Body Stated complaint: Psoriasis flare up Time Seen by Provider: 12/27/22 16:31 Source: patient Mode of arrival: ambulatory Limitations: no limitations History of Present Illness HPI narrative: Patient is a 32 year old assigned male at with a history of HIV and psoriasis presenting to the emergency department today with a penile rash. Patient states that he noticed 2 days ago that his penis was more irritated and he was concerned that it was a psoriasis flare. Patient states that he is absolutely not sexually active. Patient denies any dizziness, lightheadedness, abdominal pain, nausea, vomiting, fever, chills, blurry vision, double vision, loss of vision, chest pain, difficulty breathing, shortness of breath, back pain, night sweats, pain with urination, increased urinary frequency, increased urinary urgency, blood in his urine or stool, syncope or a near syncopal episode, recent trauma or falls, bowel incontinence, bladder incontinence, bowel retention, bladder retention, or any other complaints at this time. Onset (ago): day(s) (2) Location: genitals Radiation: non-radiation Severity: mild Severity scale (1-10): 3 Relieving factors: none Exacerbating factors: none Associated symptoms: rash Treatments prior to arrival: none Related Data Previous Rx's Medication Instructions Recorded albuterol sulfate 90 mcg/actuation 2 puff inhalation Q6H PRN 07/31/20 aerosol inhaler (ProAir HFA) shortness of breath or wheezing #18 grams azithromycin 250 mg tablet 250 mg PO DAILY 4 days #4 tabs 07/31/20 ketorolac 0.5 % eye drops 1 drp ophthalmic (eye) QID #5 mL 07/31/20 prednisone 50 mg tablet 50 mg PO DAILY #4 tabs 07/31/20 codeine 10 mg-guaifenesin 100 mg/5 10 ml PO Q4-6H PRN cough #237 mL 04/16/21 mL oral liquid prednisone 20 mg tablet 40 mg PO DAILY #10 tabs 04/16/21 acetaminophen 300 mg-codeine 30 mg 1 tab PO Q8H PRN pain #10 tabs 07/15/21 tablet lorazepam 1 mg tablet (Ativan) 1 mg PO TID PRN anxiety #10 tabs 07/15/21 ondansetron HCl 4 mg tablet 4 mg PO Q8H PRN nausea and 07/15/21 (Zofran) vomiting #14 tabs cephalexin 500 mg capsule 500 mg PO Q6H 7 days #28 caps 12/27/22 doxycycline hyclate 100 mg tablet 100 mg PO BID 7 days #14 tabs 12/27/22 fluconazole 150 mg tablet 150 mg PO Q3D 2 doses #2 tabs 12/27/22 (Diflucan) Allergies Allergy/AdvReac Type Severity Reaction Status Date / Time trazodone Allergy Unknown itching, Verified 07/15/21 11:03 rash Review of Systems Constitutional: Constitutional: Reports no additional constitutional complaints, Denies chills, Denies fever(s) and Denies night sweats Eyes: Eyes: Reports no additional eye complaints, Denies blurry vision, Denies change in vision, Denies diplopia, Denies eye discharge, Denies loss of vision and Denies eye pain ENT: Denies dizziness Cardiovascular: Cardiovascular: Reports no additional cardiovascular complaints, Denies chest pain, Denies lightheadedness, Denies Loss of Consciousness and Denies dyspnea Respiratory: Respiratory: Reports no additional respiratory complaints and Denies dyspnea Gastrointestinal: Gastrointestinal: Reports no additional gastrointestinal complaints, Denies abdominal pain, Denies melena, Denies hematochezia, Denies change in bowel habits and Denies change in stool character Genitourinary: Genitourinary: Reports no additional male genitourinary complaints, Denies hematuria, Denies oliguria, Denies difficulty urinating, Denies dysuria, Denies urinary frequency, Denies urinary hesitancy, Denies urinary incontinence and Denies urinary urgency Comments: penile rash Musculoskeletal: Musculoskeletal: Reports no additional musculoskeletal complaints, Denies numbness and Denies tingling Neurologic: Denies dizziness, Denies loss of vision, Denies numbness and Denies tingling Psychiatric: Psychiatric: Reports no additional psychiatric complaints Endocrine: Endocrine: Reports no additional endocrine complaints Hematologic/Lymphatic: Hematologic/Lymphatic: Reports no additional hematologic/lymphatic complaints Allergic/Immunologic: Allergic/Immunologic: Reports no additional allergic/immunologic complaints PMFSH Past Medical History Attestation statement: The following information was validated with the patient. Source: old records reviewed and nursing notes reviewed Medical History Asthma HIV (human immunodeficiency virus infection) Surgical History No history of previous surgery Social History Social History Alcohol intake: never Patient Tobacco Use Status: Current everyday Tobacco user Advance Directives: No Advance Directives Information Provided: No Physical Exam ED Vital Signs: Vital Signs - 24 hr 12/27/22 16:13 Temperature 98.5 F Pulse Rate 97 Respiratory Rate 16 Blood Pressure 128/55 L Pulse Oximetry 98 Oxygen Delivery Method Room Air BMI result Body Mass Index 28.4 Const General: cooperative, no acute distress, alert and awake Nutritional Appearance: well nourished Orientation/consciousness: patient oriented x3 Limitations: no limitations HENMT Head: Yes normal to inspection and Yes atraumatic Ears: hearing grossly normal bilaterally and external ears normal General nose exam: Normal external nose present, no nasal discharge noted and no epistaxis Face and sinus: Yes normal facial exam, No abrasion and No laceration Mouth: Normal oral and palatal mucosa present, no drooling and no muffled voice Eyes General: appearance normal, both eyes and all related structures Periorbital: periorbital findings normal Eyelids: Yes eyelids normal Conjunctivae: conjunctivae normal Pupils: Equal, round and reactive pupils present EOM: EOMs intact bilaterally Neck Neck: Yes normal visual inspection, Yes full ROM and Yes no lymphadenopathy Chest Chest palpation & inspection: normal inspection of the chest Resp Effort & Inspection: normal respiratory effort and able to speak in complete sentences GI Inspection: Yes normal to inspection Penis: circumcised and other Male genitals images: 1. erythema present with yellowish-discharge present in the fold Neuro General: patient oriented x3 and moves all extremities Cranial nerves: Yes Equal, round and reactive pupils present Cognition (Neuro): normal cognition Motor exam (neuro): 5/5 motor strength present throughout Sensory Exam: Normal double simultaneous stimulation for sensation Coordination: [id number] test normal Extrem General: Yes normal to inspection, Yes full ROM and Yes capillary refill normal Psych Appearance: grossly normal Mental Status: mental status grossly normal Affect: normal affect Attitude: cooperative Thought process: Normal thought process present Thought content: Normal thought content present Insight: Good insight present (Psych) Course Course Course Narrative: RME performed by Kitty Rubio PA-C. Patient is a 32 year old assigned male at presenting to the emergency department with a rash / lesion to his penis. Patient placed back in the waiting room pending room availability. Medical Decision Making Medical Decision Making MDM Narrative: Patient is a 32 year old assigned male at with a history of psoriasis and HIV presenting to the emergency department today with a penile rash. Patient's physical exam showed erythema and minimal yellowish-discharge between the fold of the head of the penis and the shaft. I explained my physical exam findings to the patient. I answered all questions asked by the patient. I stressed the importance of the patient taking his medication as prescribed. I stressed the importance of the patient following up with his primary care provider and if symptoms persist, a urologist. I stressed the importance of the patient returning to the emergency department immediately if his symptoms were to worsen or if he were to develop any dizziness, shortness of breath, difficulty breathing, chest pain, blurry vision, loss of vision, nausea, vomiting, abdominal pain, fever, chills, back pain, or any other complaints. Patient verbalized agreement and understanding with this treatment plan and discharge. Differential Diagnosis Differential Diagnoses: The differential diagnosis associated with the presentation includes yeast infection, balantitis Discharge Plan Discharge Clinical Impression: Yeast infection, Balanitis Patient Disposition: Home, Self-Care Instructions: Balanitis (ED) Additional Instructions: Follow up with your primary care provider and a urologist. Return to the emergency department immediately if your symptoms worsen or if you develop any dizziness, shortness of breath, difficulty breathing, chest pain, blurry vision, loss of vision, nausea, vomiting, abdominal pain, fever, chills, back pain, or any other complaints. Prescriptions: New fluconazole [Diflucan] 150 mg tablet 150 mg PO Q3D Qty: 2 0RF cephalexin 500 mg capsule 500 mg PO Q6H 7 Days Qty: 28 0RF doxycycline hyclate 100 mg tablet 100 mg PO BID 7 Days Qty: 14 0RF No Action azithromycin 250 mg tablet 250 mg PO DAILY 4 Days Qty: 4 0RF prednisone 50 mg tablet 50 mg PO DAILY Qty: 4 0RF ketorolac 0.5 % drops 1 drp ophthalmic (eye) QID Qty: 5 0RF albuterol sulfate [ProAir HFA] 90 mcg/actuation HFA aerosol inhaler 2 puff inhalation Q6H PRN (Reason: shortness of breath or wheezing) Qty: 18 2RF prednisone 20 mg tablet 40 mg PO DAILY Qty: 10 0RF codeine-guaifenesin 10-100 mg/5 mL liquid 10 ml PO Q4-6H PRN (Reason: cough) Qty: 237 0RF ondansetron HCl [Zofran] 4 mg tablet 4 mg PO Q8H PRN (Reason: nausea and vomiting) Qty: 14 0RF acetaminophen-codeine 300-30 mg tablet 1 tab PO Q8H PRN (Reason: pain) Qty: 10 0RF lorazepam [Ativan] 1 mg tablet 1 mg PO TID PRN (Reason: anxiety) Qty: 10 0RF Referrals: [facility] [place] [facility] [Provider Group] (Call to establish and follow up with a urologist. ) Name,MD Dwaine [Primary Care Provider] - Interventions: ED Discharge Assessment Last Done: 12/27/22 16:50 Discharge Date/Time: 12/27/22 16:51 Print Language: Maltese
== END 2022-12-27 16:51 | disposition home or self-care (01) ==
PROVIDERS: Emergency Provider Internal Medicine; PCP Internal Medicine Geriatric Medicine
DX: B37.9 Candidiasis, unspecified (principal); N48.1 Balanitis; F17.200 Nicotine dependence, unspecified, uncomplicated; Z79.899 Other long term (current) drug therapy
CPT/HCPCS: 99282; 99283

== ENCOUNTER 2023-03-26 15:41 | Outpatient (REF) | payer OTHER, SELFPAY ==
[2023-03-28 16:34] LABS: TS Negative Control Passed; TS Panel A 0; TS Panel B 0; TS Positive Control Passed; TSpotTB Negative (Negative)
== END 2023-03-26 15:42 | disposition home or self-care (01) ==
LOC: HO.HHCL 15:41
PROVIDERS: Visit Provider Internal Medicine
DX: Z11.1 Encounter for screening for respiratory tuberculosis (principal)
CPT/HCPCS: 36415; 86481

== ENCOUNTER 2023-05-17 00:28 | Emergency (ER) | payer OTHER, SELFPAY ==
[2023-05-17 00:30] VITALS: BP 104/57; PULSE 80; RESP 16; TEMP 37; O2SAT 98; BMI 30.2
--- NOTE | 2023-05-17 00:42 | PC.NURSE ---
per pt, discharge over past few days, started out white, now yellow. No pain with urination, or erection. No pain in testicular area. No itchiness or abnormal discoloration
--- NOTE | 2023-05-17 00:58 | ED.MALEGU ---
HPI - Male Genitourinary General Chief complaint: Urogenital-Male Stated complaint: abnormal discharge Time Seen by Provider: 05/17/23 00:44 Source: patient Mode of arrival: ambulatory Limitations: no limitations History of Present Illness HPI Narrative: 32-year-old male HIV positive had unprotected oral sex with another male 2 days ago now is noticing yellow thick discharge from the penis, no rash, no ulcerative lesions on the penis, no dysuria, no frequency urination. Related Data Previous Rx's Medication Instructions Recorded albuterol sulfate 90 mcg/actuation 2 puff inhalation Q6H PRN 07/31/20 aerosol inhaler (ProAir HFA) shortness of breath or wheezing #18 grams azithromycin 250 mg tablet 250 mg PO DAILY 4 days #4 tabs 07/31/20 ketorolac 0.5 % eye drops 1 drp ophthalmic (eye) QID #5 mL 07/31/20 prednisone 50 mg tablet 50 mg PO DAILY #4 tabs 07/31/20 codeine 10 mg-guaifenesin 100 mg/5 10 ml PO Q4-6H PRN cough #237 mL 04/16/21 mL oral liquid prednisone 20 mg tablet 40 mg (2 x 20 mg) PO DAILY #10 tabs 04/16/21 acetaminophen 300 mg-codeine 30 mg 1 tab PO Q8H PRN pain #10 tabs 07/15/21 tablet lorazepam 1 mg tablet (Ativan) 1 mg PO TID PRN anxiety #10 tabs 07/15/21 ondansetron HCl 4 mg tablet 4 mg PO Q8H PRN nausea and 07/15/21 (Zofran) vomiting #14 tabs cephalexin 500 mg capsule 500 mg PO Q6H 7 days #28 caps 12/27/22 doxycycline hyclate 100 mg tablet 100 mg PO BID 7 days #14 tabs 12/27/22 fluconazole 150 mg tablet 150 mg PO Q3D 2 doses #2 tabs 12/27/22 (Diflucan) doxycycline hyclate 100 mg tablet 100 mg PO BID #14 tabs 05/17/23 Allergies Allergy/AdvReac Type Severity Reaction Status Date / Time trazodone Allergy Unknown itching, Unverified 05/17/23 00:30 rash Review of Systems Review of Systems: All other systems are reviewed and are negative Constitutional: Reports as per HPI and Reports no additional constitutional complaints Eyes: Reports as per HPI and Reports no additional eye complaints Reports system reviewed and no additional complaints, except as documented Cardiovascular: Reports as per HPI and Reports no additional cardiovascular complaints Respiratory: Reports as per HPI and Reports no additional respiratory complaints Gastrointestinal: Reports as per HPI and Reports no additional gastrointestinal complaints Genitourinary: Reports no additional female genitourinary complaints Musculoskeletal: Reports no additional musculoskeletal complaints Skin/Breast: Reports system reviewed and no additional complaints, except as docu Psychiatric: Reports no additional psychiatric complaints Endocrine: Reports no additional endocrine complaints Hematologic/Lymphatic: Reports no additional hematologic/lymphatic complaints Allergic/Immunologic: Reports no additional allergic/immunologic complaints Reports system reviewed and no additional complaints, except as documented and Reports Abnormal speech present . [facility] Past Medical History Medical History HIV (human immunodeficiency virus infection) Asthma Surgical History No history of previous surgery Social History Social History Alcohol intake: never Patient Tobacco Use Status: Current everyday Tobacco user Advance Directives: No Advance Directives Information Provided: Yes Physical Exam Vital Signs: Vital Signs: Last Vital Signs Temp 98.6 F 05/17/23 00:30 Pulse 80 05/17/23 00:30 Resp 16 05/17/23 00:30 BP 104/57 L 05/17/23 00:30 Pulse Ox 98 05/17/23 00:30 O2 Del Method Room Air 05/17/23 00:30 BMI result Body Mass Index 30.2 Vital signs have been reviewed and appear to be correct. Blood pressure elevated. Heart rate normal. Respiratory rate normal. Temperature normal. Oxygen saturation normal. Appearance: Alert. Oriented X3. No acute distress. Head: Normal external exam. Normocephalic. Atraumatic. No Chopra signs noted. No raccoon eyes noted Eyes: PERRLA. EOMI. Conjunctiva and sclera normal. Eyelids normal. ENT: TM's Normal. Pharynx normal. Uvula midline. Moist mucous membranes. No trismus noted. No drooling noted. No muffled voice noted. Neck: Normal inspection. Neck supple. FROM. No adenopathy. Thyroid Normal. No meningeal signs. No neck mass noted. CVS: Normal heart rate and rhythm. Heart sound normal. No murmurs noted. Pulses normal throughout. Respiratory: No respiratory distress. Painless inspiration. Breath sounds normal. No wheezes/rales/rhonchi noted. Chest nontender. No accessory muscle usage noted or decreased air movement noted. Abdomen: Soft and nontender. Bowel sounds normal in all 4 quadrants. No distention noted. No organomegaly noted. No visible injury noted. exam: Circumcised, no rash, no ulcerative lesion, yellow discharge from the urethra. Testicular exam is unremarkable. Back: No CVA tenderness. Full range of motion noted. Skin: Skin warm and dry. Normal skin color. Normal skin turgor. No rashes/lesions/lacerations noted. Extremities: No lower extremity edema. Extremities exhibit normal range of motion. Extremities nontender. Neuro: Oriented X 3. Cranial nerve exam: II-XII are grossly intact No motor deficit. No sensory deficit. Reflexes normal. Course Course Course Narrative: 32-year-old male had oral unprotected sex complaining of urethral discharge. Will check for STDs by urine and treat with ceftriaxone 500 mg IM and doxycycline 100 mg b.i.d. for 14 days. Medical Decision Making Differential Diagnosis Differential Diagnoses: The differential diagnosis associated with the presentation includes ( STD, UTI, syphilis screen) Admission/Observation Consideration of admission/observation: Escalation of care including admission/observation considered Lab Data MDM Lab Attestation statement: I reviewed the patient's lab results. Labs: Lab Results 05/17/23 Range/Units 00:43 Urine Color Yellow Urine Appearance Clear Urine pH 7.5 (5.0-9.0) Ur Specific [place] >= 1.030 H (1.005-1.025) Urine Protein Trace (Neg-Trace) mg/dL Urine Glucose (UA) Negative (Negative) mg/dL Urine Ketones Trace (Negative) mg/dL Urine Blood Negative (Negative) Urine Nitrite Negative (Negative) Ur Leukocyte Esterase Moderate (2+) H (Negative) Discharge Plan Discharge Clinical Impression: HIV (human immunodeficiency virus infection), Sexually transmissible disease Patient Disposition: Home, Self-Care Instructions: Sexually Transmitted Diseases (ED) Prescriptions: New doxycycline hyclate 100 mg tablet 100 mg PO BID Qty: 14 0RF No Action azithromycin 250 mg tablet 250 mg PO DAILY 4 Days Qty: 4 0RF prednisone 50 mg tablet 50 mg PO DAILY Qty: 4 0RF ketorolac 0.5 % drops 1 drp ophthalmic (eye) QID Qty: 5 0RF albuterol sulfate [ProAir HFA] 90 mcg/actuation HFA aerosol inhaler 2 puff inhalation Q6H PRN (Reason: shortness of breath or wheezing) Qty: 18 2RF prednisone 20 mg tablet 40 mg PO DAILY Qty: 10 0RF codeine-guaifenesin 10-100 mg/5 mL liquid 10 ml PO Q4-6H PRN (Reason: cough) Qty: 237 0RF ondansetron HCl [Zofran] 4 mg tablet 4 mg PO Q8H PRN (Reason: nausea and vomiting) Qty: 14 0RF acetaminophen-codeine 300-30 mg tablet 1 tab PO Q8H PRN (Reason: pain) Qty: 10 0RF lorazepam [Ativan] 1 mg tablet 1 mg PO TID PRN (Reason: anxiety) Qty: 10 0RF fluconazole [Diflucan] 150 mg tablet 150 mg PO Q3D Qty: 2 0RF cephalexin 500 mg capsule 500 mg PO Q6H 7 Days Qty: 28 0RF doxycycline hyclate 100 mg tablet 100 mg PO BID 7 Days Qty: 14 0RF
[2023-05-18 08:20] LABS: Syphilis Screen Reactive (Nonreactive)
[2023-05-24 14:42] LABS: RPR Quantitative Non-Reactive (Nonreactive); T.Pallidum Particle Agg Test Reactive (Nonreactive)
== END 2023-05-17 01:23 | disposition home or self-care (01) ==
PROVIDERS: Emergency Provider Emergency Medicine; PCP Internal Medicine Geriatric Medicine
DX: A54.9 Gonococcal infection, unspecified (principal); A53.9 Syphilis, unspecified; R36.9 Urethral discharge, unspecified; Z21 Asymptomatic human immunodeficiency virus [HIV] infection status; F17.200 Nicotine dependence, unspecified, uncomplicated; Z71.6 Tobacco abuse counseling; Z79.899 Other long term (current) drug therapy; Z20.2 Contact with and (suspected) exposure to infections with a predominantly sexual mode of transmission
CPT/HCPCS: 0353U; 36415; 81001; 86592; 86780; 87086; 96372; 99284; J0696

== ENCOUNTER 2023-05-27 11:32 | Outpatient (REF) | payer OTHER, SELFPAY ==
[2023-05-27 13:32] LABS: Appearance Urine Clear; Color Urine Yellow; Glucose Urine UA Negative (Negative); Leukocyte Esterase Urine Negative (Negative); Nitrite Urine Negative (Negative); PH 5.5 (5.0-9.0); Urine Blood Negative (Negative); Urine Ketones Negative (Negative); Urine Protein Negative (Neg-Trace)
[2023-05-27 13:37] LABS: MANUAL DIFF FLAG NO
[2023-05-27 14:03] LABS: Basophils Percent Auto 0.5 % (0-2); Eosinophils Absolute Auto 0.3 X10*3/uL (0.0-0.4); Eosinophils Percent Auto 4.1 % (0-4); Hematocrit 45.1 % (42.0-52.0); Hemoglobin 16.1 g/dl (14.0-18.0); Imm Gran Abs Auto 0.02 X10*3/uL (0.00-0.03); Imm Gran Pct Auto 0.3 % (0.0-0.4); Lymphocytes Absolute Auto 2.3 X10*3/uL (1.2-4.9); Lymphocytes Percent Auto 36.6 % (20-40); Mean Corpuscular HGB Conc 35.7 g/dl (31.0-36.0); Mean Corpuscular Hemoglobin 30.7 pg (27.0-33.0); Mean Corpuscular Volume 86.1 fL (80.0-98.0); Mean Platelet Volume 9.6 fL (9.4-12.4); Monocytes Absolute Auto 0.5 X10*3/uL (0.1-1.2); Monocytes Percent Auto 7.5 % (2-11); Neutrophils Absolute Auto 3.2 x10*3/uL (2.0-8.3); Platelet Count 307 X10*3/uL (160-400); Red Blood Count 5.24 X10*6/uL (4.60-5.80); Red Cell Distribution Width 12.6 % (11.0-16.0); White Blood Count 6.3 X10*3/uL (4.8-10.8)
[2023-05-27 14:43] LABS: Alanine Aminotransferase 17 U/L (0-40); Albumin Level 4.5 g/dL (3.5-5.0); Alkaline Phosphatase 106 U/L (39-117); Anion Gap 14 (12-20); Aspartate Amino Transferase 14 U/L (5-37); Bilirubin Total 0.8 mg/dL (0.0-1.0); Blood Urea Nitrogen 12 mg/dL (9-16); Calcium 9.3 mg/dL (8.4-10.2); Carbon Dioxide 22 mmol/L (22-29); Chloride 109 mmol/L (96-108); Estimated Glomerular Filt Rate > 60; Glucose Random 89 mg/dL (60-115); Potassium 3.7 mmol/L (3.3-5.1); Sodium 141 mmol/L (135-145); Total Protein 6.9 g/dL (6.5-8.0)
[2023-05-27 14:50] LABS: Cholesterol 188 mg/dL (<200); HDL Cholesterol 40 mg/dL (>40); LDL Cholesterol Calculated 108 mg/dL (<100); Triglycerides 203 mg/dL (<150)
[2023-05-27 14:55] LABS: Reflex LDLD? No
[2023-05-28 11:38] LABS: Absolute CD3 Count 1675 cells/uL (840-3060); Absolute CD4 Count 986 cells/uL (490-1740); Absolute CD8 Count 653 cells/uL (180-1170); Absolute Lymphocytes 2252 cells/uL (850-3900); CD4 CD8 Ratio 1.51 (0.86-5.00); Percent CD3 Cells 74 % (57-85); Percent CD4 Cells 44 % (30-61); Percent CD8 Cells 29 % (12-42)
[2023-05-29 18:18] LABS: HIV RNA PCR Qn Copies <20 DETECTED copies/mL (NOT DETECTED); HIV RNA PCR Qn Log Copies <1.30 DETECTED (NOT DETECTED)
== END 2023-05-27 11:33 | disposition home or self-care (01) ==
LOC: HO.HHCL 11:32
PROVIDERS: Visit Provider Internal Medicine
DX: B20 Human immunodeficiency virus [HIV] disease (principal)
CPT/HCPCS: 36415; 80053; 80061; 81003; 85025; 86359; 86360; 87536

== ENCOUNTER 2023-11-20 16:20 | Emergency (ER) | payer OTHER, SELFPAY ==
--- NOTE | ~2023-11-20 | CT_ITS ---
EXAMINATION: CT abdomen pelvis w IV con CLINICAL INFORMATION: Reason for Exam BRBPR, rectal pain, left inguinal pain COMPARISON: Prior CT 2016 TECHNIQUE: Multidetector volumetric imaging was performed from the superior aspect of the liver through the pubic symphysis 85 mL Omnipaque 350 injected Sagittal and coronal reformatted images were obtained on the technologist's workstation. This CT examination was performed using dose optimization techniques as appropriate, variously including the following: *Automated exposure control *Adjustment of mA and/or kV according to patient size (this includes techniques or standardized protocols for targeted exams where dose is matched to indication/reason for exam; i.e. extremities or head) *Use of iterative reconstruction technique DLP: 762 mGy-cm FINDINGS: LOWER THORAX: Included lung bases are clear. HEPATOBILIARY: No focal hepatic lesions. No biliary ductal dilatation. GALLBLADDER: Gallbladder unremarkable. SPLEEN: Spleen is normal in size. PANCREAS: No focal mass or ductal dilatation. STOMACH AND GASTROINTESTINAL TRACT: Stomach is grossly unremarkable. Few diverticula of the sigmoid colon without CT evidence of acute diverticulitis. No bowel obstruction. No CT evidence of appendicitis. ADRENALS: No adrenal nodules. KIDNEYS/URETERS: No hydronephrosis, stones or solid mass lesions. URINARY BLADDER: Partially decompressed. PELVIC VISCERA: Unremarkable PERITONEUM: No free air or fluid. LYMPH NODES: An enlarged left pelvic lymph node just anterior to the left acetabulum measure 1.8 x 1.4 cm uncertain etiology. This however been present since 2016. VASCULAR:Abdominal aorta normal in size, no aneurysm found. BONES, ABDOMINAL WALL AND SOFT TISSUES: Age-appropriate changes of the spine and skeletal system, no destructive osteolytic or osteosclerotic bone lesion found CT/CT abdomen pelvis w IV con IMPRESSION: 1. No CT evidence of acute intra-abdominal process to explain patient's pain symptoms. 2. Diverticulosis without evidence of acute diverticulitis. 3. Mildly enlarged left pelvic lymph nodes, this is chronic unchanged since prior CT, uncertain etiology.
--- NOTE | 2023-11-20 16:56 | ED_ITS ---
HPI - General Adult General Chief complaint: General Medical Stated complaint: Rectum bleeding Time Seen by Provider: 11/20/23 17:35 Source: patient Mode of arrival: ambulatory Limitations: no limitations History of Present Illness HPI narrative: 33 yo male with history of HIV on HAART w/ normal CD4 counts and undetectable viral load, asthma and psoriasis who presents to the ER for evaluation of painful rectal bleeding for the last 2 days. Patient reports 3 episodes of BRBPR when he wipes with pain in the rectum. Pain with walking. He also has pain in the LLQ and left inguinal area. He states that his stool has been soft brown and there was some blood drops in the toilet as well as on the toilet paper. He denies N/V, fevers. He last had anal sex 1 month ago. No painful penile lesions. He has had dry skin on his penis and right inguinal area that he thinks is his psoriasis. He has history of syphilis and was treated in May. He follows w/ ID at [facility]. He has had a rectal surgery in 2011 for a lesion but he is unsure of that it was. He had HPV screening last year and was normal. He reports 7/10 rectal pain, pain with sitting. MD complaint: rectal pain and BRBPR Onset (ago): day(s) (2) Location: buttocks Radiation: other (left inguinal regoin) Severity: moderate Severity scale (1-10): 7 Quality: stabbing, sharp and constant Pain Consistency: constant Relieving factors: rest Exacerbating factors: movement Associated symptoms: denies other symptoms Treatments prior to arrival: none Related Data Previous Rx's ?Medication ?Instructions ?Recorded albuterol sulfate 90 mcg/actuation 2 puff inhalation Q6H PRN 07/31/20 aerosol inhaler (ProAir HFA) shortness of breath or wheezing #18 grams azithromycin 250 mg tablet 250 mg PO DAILY 4 days #4 tabs 07/31/20 ketorolac 0.5 % eye drops 1 drp ophthalmic (eye) QID #5 mL 07/31/20 prednisone 50 mg tablet 50 mg PO DAILY #4 tabs 07/31/20 codeine 10 mg-guaifenesin 100 mg/5 10 ml PO Q4-6H PRN cough #237 mL 04/16/ mL oral liquid prednisone 20 mg tablet 40 mg (2 x 20 mg) PO DAILY #10 tabs 04/16/21 acetaminophen 300 mg-codeine 30 mg 1 tab PO Q8H PRN pain #10 tabs 07/15/21 tablet lorazepam 1 mg tablet (Ativan) 1 mg PO TID PRN anxiety #10 tabs 07/15/21 ondansetron HCl 4 mg tablet 4 mg PO Q8H PRN nausea and 07/15/21 (Zofran) vomiting #14 tabs cephalexin 500 mg capsule 500 mg PO Q6H 7 days #28 caps 12/27/22 doxycycline hyclate 100 mg tablet 100 mg PO BID 7 days #14 tabs 12/27/22 fluconazole 150 mg tablet 150 mg PO Q3D 2 doses #2 tabs 12/27/22 (Diflucan) doxycycline hyclate 100 mg tablet 100 mg PO BID #14 tabs 05/17/23 doxycycline hyclate 100 mg tablet 100 mg PO BID #14 tabs 11/20/23 Allergies Allergy/AdvReac Type Severity Reaction Status Date / Time trazodone Allergy Unknown itching, Verified 11/20/23 17:00 rash Review of Systems 2 Review of Systems: Yes all other systems are reviewed and are negative [facility] Past Medical History Medical History HIV (human immunodeficiency virus infection) Asthma Surgical History No history of previous surgery Social History Social History Alcohol intake: never Patient Tobacco Use Status: Current everyday Tobacco user Smoked in Last 30 Days: Yes Use of substances other than those prescribed or required for medical reasons: Yes Substance Use Type: Crack/Cocaine Substance Use Frequency: Occasionally Substance Use Frequency Other:: very rare cocaine use, last time was 1 mo ago Advance Directives: No Advance Directives Information Provided: No Physical Exam ED Vital Signs: Vital Signs - 24 hr 11/20/23 17:00 Temperature 97 F Pulse Rate 87 Respiratory Rate 18 Blood Pressure 126/82 Pulse Oximetry 97 Oxygen Delivery Method Room Air BMI result Body Mass Index 34.6 Appearance: Alert. Oriented X3. No acute distress. Head: normocephalic, atraumatic. Eyes: Pupils equal, round and reactive to light. ENT: Pharynx normal. No tonsillar swelling or exudate. Neck: Normal inspection. Neck supple. CVS: Normal heart rate and rhythm. Pulses normal. Respiratory: No respiratory distress. Breath sounds normal. Abdomen: Soft with LLQ and left inguinal tenderness with guarding, no rebound, normal active. +BS x4. no inguinal masses or hernias palpable. /ROHIT: dry, erythematous, scaly rash in the right inguinal area. scaly rash on the shaft of the penis. no ulcers. no discharge from meatus. no scrotal swelling or tenderness. perirectal area with erythematous, raw skin, no visible hemorrhoids, tender rectal exam without palpable masses, no stool in the rectal vault, scant amount of pink blood oozing from rectum Skin: Skin warm and dry. Normal skin color. Normal skin turgor. Extremities: No lower extremity edema. No joint swelling. Neuro/psych: Oriented X 3. No motor deficit. No sensory deficit. CN II-XII intact. Normal speech and cognition. Course Course Course Narrative: This is an RME: Additional HPI, ROS, PE not included below will be deferred to primary provider. Patient is a 33-year-old male who presents emergency department for evaluation of pain, onset yesterday evening. Reports at times pain radiates into the left groin, thigh, penis and suprapubic region. He denies any testicular pain or swelling. Reports 2 episodes of notable rectal blood upon wiping, denies any blood in stool. He denies any history of injury or trauma that may have resulted in this blood. He does report a history of HIV, reports good CD4 counts not recall exact date or number, viral load nondetectable Reevaluation(s) Reevaluation #1: signed out to [facility] pending CT scan Reevaluation #2: CT/CT abdomen pelvis w IV con IMPRESSION: 1. No CT evidence of acute intra-abdominal process to explain patient's pain symptoms. 2. Diverticulosis without evidence of acute diverticulitis. 3. Mildly enlarged left pelvic lymph nodes, this is chronic unchanged since prior CT, uncertain etiology. Patient made aware of the above findings. Stable for discharge. Medications Administered Discontinued Medications Generic Name Dose Route Start Last Admin Trade Name Freq PRN Reason Stop Dose Admin Acetaminophen 975 mg 11/20/23 18:11 11/20/23 19:05 Acetaminophen 325 Mg Tablet PO 11/20/23 18:12 975 mg ONCE ONE Administration Ceftriaxone Sodium 500 mg/ 0 mg 11/20/23 18:34 11/20/23 19:06 Lidocaine HCl 1 ml IM 11/20/23 18:35 1 kit ONCE ONE Administration Doxycycline Monohydrate 100 mg 11/20/23 18:34 11/20/23 19:05 Doxycycline Monohydrate 100 Mg Capsule PO 11/20/23 18:35 100 mg ONCE ONE Administration Iohexol 100 ml 11/20/23 18:50 11/20/23 18:50 Iohexol 350 Mg/Ml 100 Ml Infus..Btl IV 11/20/23 18:51 85 ml ONCE ONE Administration Oxycodone HCl 5 mg 11/20/23 18:11 11/20/23 19:06 Oxycodone Hcl Immed Release 5 Mg Tablet PO 11/20/23 18:12 5 mg ONCE ONE Administration Medical Decision Making Medical Decision Making MDM Narrative: 33-year-old male with history of HIV on heart with normal CD4 count and undetectable viral load presents to the ER for evaluation of rectal pain and rectal bleeding for the last 2 days. He has had 3 episodes of bright red blood per rectum with brown stools. He has significant rectal tenderness and discomfort. He also has some left lower quadrant and left inguinal pain and tenderness on examination. No rectal lesions hemorrhoids or ulcers noted. His lab work reveals normal hemoglobin of 14.8. Normal platelet count. Other lab work is unremarkable. CT scan ordered for further evaluation of possible proctitis versus diverticular bleed. unable to tolerate rectal contrast due to pain. Differential Diagnosis Differential Diagnoses: The differential diagnosis associated with the presentation includes Proctitis, hemorrhoidal bleeding, diverticular bleeding, trauma, CMV colitis less likely given he has normal CD4 count in his on antiretrovirals, prostatitis, anal fissue, anorectal cancer, HPV Admission/Observation Consideration of admission/observation: Escalation of care including admission/observation considered Lab Data [facility] Lab Attestation statement: I reviewed the patient's lab results. 11/20/23 17:07 11/20/23 17:07 Labs: Lab Results 11/20/23 Range/Units 17:07 WBC 7.4 (4.8-10.8) X10*3/uL RBC 4.90 (4.60-5.80) X10*6/uL Hgb 14.8 (14.0-18.0) g/dl Hct 41.4 L (42.0-52.0) % MCV 84.5 (80.0-98.0) fL MCH 30.2 (27.0-33.0) pg MCHC 35.7 (31.0-36.0) g/dl RDW 13.2 (11.0-16.0) % Plt Count 240 (160-400) X10*3/uL MPV 9.0 L (9.4-12.4) fL Immature Gran % (Auto) 0.4 (0.0-0.4) % Neut % (Auto) 63.0 (45-73) % Lymph % (Auto) 23.3 (20-40) % Kay % (Auto) 9.1 (2-11) % Eos % (Auto) 3.9 (0-4) % Baso % (Auto) 0.3 (0-2) % Lymph # (Auto) 1.7 (1.2-4.9) X10*3/uL Kay # (Auto) 0.7 (0.1-1.2) X10*3/uL Eos # (Auto) 0.3 (0.0-0.4) X10*3/uL Baso # (Auto) 0.0 (0.0-0.2) X10*3/uL Abs Immat Gran (auto) 0.03 (0.00-0.03) X10*3/uL Absolute Neuts (auto) 4.6 (2.0-8.3) x10*3/uL Absolute Nucleated RBC 0.000 (0.0-0.012) X10*3/uL Nucleated RBC % (auto) 0.0 (0.0-0.2) /100WBC Sodium 140 (135-145) mmol/L Potassium 4.3 (3.3-5.1) mmol/L Chloride 105 (96-108) mmol/L Carbon Dioxide 25 (22-29) mmol/L Anion Gap 14 (12-20) BUN 12 (9-16) mg/dL Creatinine 0.77 (0.5-1.4) mg/dL Estim Creat Clear Calc 151.7 Estimated GFR > 60 Random Glucose 92 (60-115) mg/dL Calcium 9.6 (8.4-10.2) mg/dL Total Bilirubin 0.6 (0.0-1.0) mg/dL AST 24 (5-37) U/L ALT 47 H (0-40) U/L Alkaline Phosphatase 116 (39-117) U/L Total Protein 7.2 (6.5-8.0) g/dL Albumin 4.6 (3.5-5.0) g/dL Urine Color Yellow Urine Appearance Clear Urine pH 8.0 (5.0-9.0) Ur Specific [place] 1.015 (1.005-1.025) Urine Protein Negative (Neg-Trace) mg/dL Urine Glucose (UA) Negative (Negative) mg/dL Urine Ketones Negative (Negative) mg/dL Urine Blood Negative (Negative) Urine Nitrite Negative (Negative) Ur Leukocyte Esterase Negative (Negative) Independent Interpretation I performed an independent interpretation of an: CT Scan Interpretation: no evidence of abscess, no colonic stranding, agree w/ radiology read Radiology Impression Discussion of test interpretation with radiology: I have reviewed the radiologist's reading. Radiologist Impression: CT/CT abdomen pelvis w IV con IMPRESSION: 1. No CT evidence of acute intra-abdominal process to explain patient's pain symptoms. 2. Diverticulosis without evidence of acute diverticulitis. 3. Mildly enlarged left pelvic lymph nodes, this is chronic unchanged since prior CT, uncertain etiology. External Record Review External record reviewed: Office record, Outpatient record, Prior outpatient labs and Prior outpatient radiology Prescription Management I considered prescription management with: Pain Medication Chronic Conditions Patient?s care impacted by: Other (HIV on HAART) Discharge Plan Discharge Clinical Impression: Rectal bleeding, Pain in rectum Patient Disposition: Home, Self-Care Instructions: Rectal Bleeding (ED), Proctitis (ED) Additional Instructions: Your CT scan was unremarkable Take the prescribed antibiotics for possible bacterial cause of rectal inflammation and bleeding Follow up with [facility] / Dr. Barrios Take the prescribed antibiotics as directed, complete the entire course and do not miss any doses Recommend following up with GI for further evaluation and treatment - call for an appointment If you develop new or worsening symptoms call 911 or come back to the ER for further evaluation. Prescriptions: New doxycycline hyclate 100 mg tablet 100 mg PO BID Qty: 14 0RF No Action azithromycin 250 mg tablet 250 mg PO DAILY 4 Days Qty: 4 0RF prednisone 50 mg tablet 50 mg PO DAILY Qty: 4 0RF ketorolac 0.5 % drops 1 drp ophthalmic (eye) QID Qty: 5 0RF albuterol sulfate [ProAir HFA] 90 mcg/actuation HFA aerosol inhaler 2 puff inhalation Q6H PRN (Reason: shortness of breath or wheezing) Qty: 18 2RF prednisone 20 mg tablet 40 mg PO DAILY Qty: 10 0RF codeine-guaifenesin 10-100 mg/5 mL liquid 10 ml PO Q4-6H PRN (Reason: cough) Qty: 237 0RF ondansetron HCl [Zofran] 4 mg tablet 4 mg PO Q8H PRN (Reason: nausea and vomiting) Qty: 14 0RF acetaminophen-codeine 300-30 mg tablet 1 tab PO Q8H PRN (Reason: pain) Qty: 10 0RF lorazepam [Ativan] 1 mg tablet 1 mg PO TID PRN (Reason: anxiety) Qty: 10 0RF fluconazole [Diflucan] 150 mg tablet 150 mg PO Q3D Qty: 2 0RF cephalexin 500 mg capsule 500 mg PO Q6H 7 Days Qty: 28 0RF doxycycline hyclate 100 mg tablet 100 mg PO BID 7 Days Qty: 14 0RF doxycycline hyclate 100 mg tablet 100 mg PO BID Qty: 14 0RF Referrals: [facility] [place] [facility] [Provider Group] (rectal bleeding) [facility] [Provider Group] Name,MD Dwaine [Primary Care Provider] - Stand Alone Forms: Work/School Release Print Language: Japanese
[2023-11-20 17:00] VITALS: BP 126/82; PULSE 87; RESP 18; TEMP 36.1; O2SAT 97; BMI 34.6
[2023-11-20 17:13] LABS: MANUAL DIFF FLAG NO
[2023-11-20 17:16] LABS: Basophils Percent Auto 0.3 % (0-2); Eosinophils Absolute Auto 0.3 X10*3/uL (0.0-0.4); Eosinophils Percent Auto 3.9 % (0-4); Hematocrit 41.4 % (42.0-52.0); Hemoglobin 14.8 g/dl (14.0-18.0); Imm Gran Abs Auto 0.03 X10*3/uL (0.00-0.03); Imm Gran Pct Auto 0.4 % (0.0-0.4); Lymphocytes Absolute Auto 1.7 X10*3/uL (1.2-4.9); Lymphocytes Percent Auto 23.3 % (20-40); Mean Corpuscular HGB Conc 35.7 g/dl (31.0-36.0); Mean Corpuscular Hemoglobin 30.2 pg (27.0-33.0); Mean Corpuscular Volume 84.5 fL (80.0-98.0); Monocytes Absolute Auto 0.7 X10*3/uL (0.1-1.2); Monocytes Percent Auto 9.1 % (2-11); Neutrophils Absolute Auto 4.6 x10*3/uL (2.0-8.3); Platelet Count 240 X10*3/uL (160-400); Red Cell Distribution Width 13.2 % (11.0-16.0); White Blood Count 7.4 X10*3/uL (4.8-10.8)
[2023-11-20 17:21] LABS: Appearance Urine Clear; Color Urine Yellow; Glucose Urine UA Negative (Negative); Leukocyte Esterase Urine Negative (Negative); Nitrite Urine Negative (Negative); Specific Gravity - Urine 1.015 (1.005-1.025); Urine Blood Negative (Negative); Urine Ketones Negative (Negative); Urine Protein Negative (Neg-Trace)
[2023-11-20 17:33] LABS: Alanine Aminotransferase 47 U/L (0-40); Albumin Level 4.6 g/dL (3.5-5.0); Alkaline Phosphatase 116 U/L (39-117); Anion Gap 14 (12-20); Aspartate Amino Transferase 24 U/L (5-37); Bilirubin Total 0.6 mg/dL (0.0-1.0); Blood Urea Nitrogen 12 mg/dL (9-16); Calcium 9.6 mg/dL (8.4-10.2); Carbon Dioxide 25 mmol/L (22-29); Chloride 105 mmol/L (96-108); Creatinine Clr Calc Pharmacy 151.7; Estimated Glomerular Filt Rate > 60; Glucose Random 92 mg/dL (60-115); Potassium 4.3 mmol/L (3.3-5.1); Sodium 140 mmol/L (135-145); Total Protein 7.2 g/dL (6.5-8.0)
[2023-11-20] MEDS: iohexoL 350 MG/ML 100 ML INFUS..BTL IV (18:50)
[2023-11-20] MEDS: Acetaminophen 325 MG TABLET 975 MG PO (19:05)
[2023-11-20] MEDS: Doxycycline Monohydrate 100 MG CAPSULE PO (19:05)
[2023-11-20] MEDS: cefTRIAXone sodium 500 MG, Lidocaine HCl 1 % MPF 1 ML IM (19:06)
[2023-11-20] MEDS: oxyCODONE HCl Immed Release 5 MG TABLET PO (19:06)
[2023-11-20 21:55] VITALS: BP 123/83; PULSE 75; TEMP 36.7; O2SAT 98
[2023-11-20 22:16] VITALS: BP 123/83; PULSE 75; RESP 18; TEMP 36.7; O2SAT 98
[2023-11-21 03:57] LABS: Syphilis Screen Reactive (Nonreactive)
[2023-11-25 15:19] LABS: RPR Quantitative Non-Reactive (Nonreactive); T.Pallidum Particle Agg Test Reactive (Nonreactive)
== END 2023-11-20 22:17 | disposition home or self-care (01) ==
PROVIDERS: Nurse Practitioner Family; Physician Assistant; Emergency Provider Student in an Organized Health Care Education/Training Program; PCP Internal Medicine Geriatric Medicine
DX: K62.5 Hemorrhage of anus and rectum (principal); K62.89 Other specified diseases of anus and rectum; A53.9 Syphilis, unspecified; Z21 Asymptomatic human immunodeficiency virus [HIV] infection status; J45.909 Unspecified asthma, uncomplicated; Z79.899 Other long term (current) drug therapy
CPT/HCPCS: 36415; 74177; 80053; 81003; 85025; 86592; 86780; 96372; 99284; J0696; Q9967

== ENCOUNTER 2024-04-10 07:44 | Emergency (ER) | payer OTHER, SELFPAY ==
--- NOTE | ~2024-04-10 | XR_ITS ---
EXAMINATION: XR CHEST CLINICAL INFORMATION: Right sided chest pain COMPARISON: Chest xray on 12/25/21 TECHNIQUE: 2 views of the chest were obtained. FINDINGS: No significant abnormality is noted involving the heart, lungs, mediastinum, bony thorax or soft tissues. XR/XR chest 2V IMPRESSION: Unremarkable examination. Electronically signed by: Christa Orellana MD 04/10/2024 09:15 AM EDT RP
[2024-04-10 07:58] VITALS: BP 124/75; PULSE 85; RESP 16; TEMP 36.1; O2SAT 96; BMI 30.7
[2024-04-10 08:21] LABS: MANUAL DIFF FLAG NO
[2024-04-10 08:22] LABS: Basophils Absolute Auto 0.1 X10*3/uL (0.0-0.2); Basophils Percent Auto 0.8 % (0-2); Eosinophils Absolute Auto 0.3 X10*3/uL (0.0-0.4); Eosinophils Percent Auto 4.3 % (0-4); Hematocrit 44.3 % (42.0-52.0); Hemoglobin 16.1 g/dl (14.0-18.0); Imm Gran Abs Auto 0.01 X10*3/uL (0.00-0.03); Imm Gran Pct Auto 0.1 % (0.0-0.4); Lymphocytes Absolute Auto 2.1 X10*3/uL (1.2-4.9); Lymphocytes Percent Auto 28.6 % (20-40); Mean Corpuscular HGB Conc 36.3 g/dl (31.0-36.0); Mean Corpuscular Hemoglobin 30.3 pg (27.0-33.0); Mean Corpuscular Volume 83.4 fL (80.0-98.0); Monocytes Absolute Auto 0.7 X10*3/uL (0.1-1.2); Neutrophils Absolute Auto 4.1 x10*3/uL (2.0-8.3); Neutrophils Percent Auto 57.2 % (45-73); Platelet Count 298 X10*3/uL (160-400); Red Blood Count 5.31 X10*6/uL (4.60-5.80); Red Cell Distribution Width 13.1 % (11.0-16.0); White Blood Count 7.2 X10*3/uL (4.8-10.8)
--- NOTE | 2024-04-10 08:28 | ECG_ITS ---
Test Reason : CHEST PAIN Blood Pressure : / mmHG Vent. Rate : 074 BPM Atrial Rate : 074 BPM P-R Int : 162 ms QRS Dur : 094 ms QT Int : 376 ms P-R-T Axes : 082 019 040 degrees QTc Int : 417 ms Normal sinus rhythm Normal ECG When compared with ECG of 02-MAY-2019 09:32, Vent. rate has decreased BY 45 BPM Referred By: Makayla Moralez Electronically Signed By:CHANTELL MARTINEZ
[2024-04-10 08:36] LABS: Alanine Aminotransferase 17 U/L (0-40); Albumin Level 4.7 g/dL (3.5-5.0); Alkaline Phosphatase 106 U/L (39-117); Anion Gap 15 (12-20); Aspartate Amino Transferase 16 U/L (5-37); Blood Urea Nitrogen 17 mg/dL (9-16); Calcium 9.3 mg/dL (8.4-10.2); Carbon Dioxide 21 mmol/L (22-29); Chloride 107 mmol/L (96-108); Creatinine Clr Calc Pharmacy 118.8; Estimated Glomerular Filt Rate > 60; Glucose Random 92 mg/dL (60-115); Potassium 3.8 mmol/L (3.3-5.1); Sodium 139 mmol/L (135-145); Total Protein 7.1 g/dL (6.5-8.0)
--- NOTE | 2024-04-10 08:37 | ED_ITS ---
HPI - General Adult General Chief complaint: Epistaxis Stated complaint: bloody nose Time Seen by Provider: 04/10/24 08:19 Source: patient Mode of arrival: ambulatory Limitations: no limitations History of Present Illness ED Provider: faustina CLAYTON narrative: Patient is a 33-year-old male with history of HIV, asthma, cocaine use presenting to the emergency department with complaint of nosebleed since this morning after inhaling sharply. States bleeding has been oozing since that time but he is unable to get it to stop. He is not anticoagulated. He also complains of right anterior chest pain worse with inspiration. States chest pain is intermittent. 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 MD complaint: epistaxis, chest pain Onset (ago): hour(s) Treatments prior to arrival: none Related Data Previous Rx's ?Medication ?Instructions ?Recorded albuterol sulfate 90 mcg/actuation 2 puff inhalation Q6H PRN 07/31/20 aerosol inhaler (ProAir HFA) shortness of breath or wheezing #18 grams azithromycin 250 mg tablet 250 mg PO DAILY 4 days #4 tabs 07/31/20 ketorolac 0.5 % eye drops 1 drp ophthalmic (eye) QID #5 mL 07/31/20 prednisone 50 mg tablet 50 mg PO DAILY #4 tabs 07/31/20 codeine 10 mg-guaifenesin 100 mg/5 10 ml PO Q4-6H PRN cough #237 mL 04/16/21 mL oral liquid prednisone 20 mg tablet 40 mg (2 x 20 mg) PO DAILY #10 tabs 04/16/21 acetaminophen 300 mg-codeine 30 mg 1 tab PO Q8H PRN pain #10 tabs 07/15/21 tablet lorazepam 1 mg tablet (Ativan) 1 mg PO TID PRN anxiety #10 tabs 07/15/21 ondansetron HCl 4 mg tablet 4 mg PO Q8H PRN nausea and 07/15/21 (Zofran) vomiting #14 tabs cephalexin 500 mg capsule 500 mg PO Q6H 7 days #28 caps 12/27/22 doxycycline hyclate 100 mg tablet 100 mg PO BID 7 days #14 tabs 12/27/22 fluconazole 150 mg tablet 150 mg PO Q3D 2 doses #2 tabs 12/27/22 (Diflucan) doxycycline hyclate 100 mg tablet 100 mg PO BID #14 tabs 05/17/23 doxycycline hyclate 100 mg tablet 100 mg PO BID #14 tabs 11/20/23 Allergies Allergy/AdvReac Type Severity Reaction Status Date / Time trazodone Allergy Unknown itching, Verified 04/10/24 08:01 rash Review of Systems 2 Review of Systems: as per hpi Yes all other systems are reviewed and are negative Constitutional: Constitutional: Reports as per HPI [facility] Past Medical History Medical History HIV (human immunodeficiency virus infection) Asthma Surgical History No history of previous surgery Social History Social History (Reviewed 05/17/23 @ 01: by Orlando Schilling MD) Alcohol intake: never Patient Tobacco Use Status: Current everyday Tobacco user Substance Use Type: Crack/Cocaine Advance Directives: No Advance Directives Information Provided: Yes Physical Exam ED Vital Signs: Vital Signs - 24 hr 04/10/24 07:58 04/10/24 10:19 Temperature 97 F 97.6 F Pulse Rate 85 71 Respiratory Rate 16 16 Blood Pressure 124/75 126/81 Pulse Oximetry 96 97 Oxygen Delivery Method Room Air Room Air BMI result Body Mass Index 30.7 Vital signs have been reviewed and appear to be correct. Blood pressure normal. Heart rate normal. Respiratory rate normal. Temperature normal. Oxygen saturation normal. Const General: cooperative, healthy appearing and no acute distress Orientation/consciousness: oriented to person, oriented to place, oriented to time and patient oriented x3 Limitations: no limitations [facility] Head: Yes normocephalic and Yes atraumatic Ears: external ears normal General nose exam: Normal external nose present and Epistaxis present bilaterally (very slight oozing) anterior source and dried blood present Face and sinus: Yes face symmetric Mouth: oropharynx normal and moist mucous membranes Throat: Yes uvula midline Eyes Pupils: Equal, round and reactive pupils present Neck Neck: Yes normal visual inspection and Yes supple Resp Effort & Inspection: normal respiratory effort and able to speak in complete sentences Auscultation: clear to auscultation bilaterally Cardio Rate: regular rate Rhythm: regular rhythm Heart sounds: S1 normal heart sound present and S2 normal heart sound present GI Palpation (GI): Soft to palpation and nontender Auscultation: normoactive bowel sounds General: Yes no CVA tenderness Back/Spine/Pelvis Back: no CVA tenderness Skin General skin exam: elasticity normal and turgor normal Neuro General: oriented to person, oriented to place, oriented to time, patient oriented x3, moves all extremities, no focal motor deficits and CN's II-XI intact bilaterally Cranial nerves: Yes Equal, round and reactive pupils present Cognition (Neuro): normal cognition Extrem General: Yes full ROM, Yes no pedal edema and Yes no calf tenderness Psych Mental Status: mental status grossly normal Affect: normal affect Thought process: Normal thought process present Medications Administered Discontinued Medications Generic Name Dose Route Start Last Admin Trade Name Quinnq PRN Reason Stop Dose Admin Phenylephrine HCl 2 spray 04/10/24 10:43 04/10/24 10:59 Phenylephrine Hcl 0.5 % Nasal 15 Ml Sprbtl NOSTRIL-B 04/10/24 10:44 2 spray ONCE ONE Administration Medical Decision Making Medical Decision Making [facility] Narrative: Patient is a 33-year-old male with history of HIV, asthma, cocaine use presenting to the emergency department with complaint of nosebleed since this morning after inhaling sharply. On exam patient is awake, A+Ox3, VS WNL, afebrile, normal neurological exam without focal deficits, physical exam findings as above. Given reported symptoms and physical exam findings, initial differential includes epistaxis, costochondritis, musculoskeletal pain. Unlikely ACS but given recent cocaine use will check troponin and EKG. Labs unremarkable, troponin negative, D-dimer negative. Repeat troponin also negative. EKG shows normal sinus rhythm. X-ray chest notable for no cardiomegaly, pneumothorax, no pneumonia. My interpretation is in agreement with the radiologist's interpretation. Slight oozing still noted after patient held direct pressure. Bleeding controlled with phenylephrine spray. Discussed with patient avoiding cocaine use to prevent rebleeding. Advised patient to avoid touching or picking at his nose for the remainder of the day today. Instructed patient to apply Vaseline or bacitracin to inside of nares BID as needed. Follow up with PCP. Return precautions discussed. Patient verbalized understanding of and agreement with plan. Differential Diagnosis Differential Diagnoses: The differential diagnosis associated with the presentation includes As per [facility]. Lab Data [facility] Lab Attestation statement: I reviewed the patient's lab results. As per MDM. 04/10/24 08:15 09/01/24 08:15 Labs: Lab Results 04/10/24 04/10/24 04/10/24 Range/Units 08:15 08:44 11:15 WBC 7.2 (4.8-10.8) X10*3/uL RBC 5.31 (4.60-5.80) X10*6/uL Hgb 16.1 (14.0-18.0) g/dl Hct 44.3 (42.0-52.0) % MCV 83.4 (80.0-98.0) fL MCH 30.3 (27.0-33.0) pg MCHC 36.3 H (31.0-36.0) g/dl RDW 13.1 (11.0-16.0) % Plt Count 298 (160-400) X10*3/uL MPV 9.0 L (9.4-12.4) fL Immature Gran % (Auto) 0.1 (0.0-0.4) % Neut % (Auto) 57.2 (45-73) % Lymph % (Auto) 28.6 (20-40) % Garrard % (Auto) 9.0 (2-11) % Eos % (Auto) 4.3 H (0-4) % Baso % (Auto) 0.8 (0-2) % Lymph # (Auto) 2.1 (1.2-4.9) X10*3/uL Garrard # (Auto) 0.7 (0.1-1.2) X10*3/uL Eos # (Auto) 0.3 (0.0-0.4) X10*3/uL Baso # (Auto) 0.1 (0.0-0.2) X10*3/uL Abs Immat Gran (auto) 0.01 (0.00-0.03) X10*3/uL Absolute Neuts (auto) 4.1 (2.0-8.3) x10*3/uL Absolute Nucleated RBC 0.000 (0.0-0.012) X10*3/uL Nucleated RBC % (auto) 0.0 (0.0-0.2) /100WBC D-Dimer High Sensitivty < 150 NG/ML Sodium 139 (135-145) mmol/L Potassium 3.8 (3.3-5.1) mmol/L Chloride 107 (96-108) mmol/L Carbon Dioxide 21 L (22-29) mmol/L Anion Gap 15 (12-20) BUN 17 H (9-16) mg/dL Creatinine 0.99 (0.5-1.4) mg/dL Estim Creat Clear Calc 118.8 Estimated GFR > 60 Random Glucose 92 (60-115) mg/dL Calcium 9.3 (8.4-10.2) mg/dL Total Bilirubin 1.0 (0.0-1.0) mg/dL AST 16 (5-37) U/L ALT 17 (0-40) U/L Alkaline Phosphatase 106 (39-117) U/L Troponin I High Sens < 2.7 < 2.7 (<3.5-35.0) ng/L Total Protein 7.1 (6.5-8.0) g/dL Albumin 4.7 (3.5-5.0) g/dL Independent Interpretation I performed an independent interpretation of an: EKG (Normal sinus rhythm, rate 74bpm, normal IL interval and QTc) and Plain X-Ray Interpretation: X-ray chest notable for no cardiomegaly, pneumothorax, no pneumonia. Radiology Impression Discussion of test interpretation with radiology: I have reviewed the radiologist's reading. Radiologist Impression: XR/XR chest 2V IMPRESSION: Unremarkable examination. External Record Review External record reviewed: Inpatient record, Office record and Outpatient record Discharge Plan Discharge Clinical Impression: Epistaxis, Atypical chest pain Patient Disposition: Home, Self-Care Instructions: Nosebleed (ED), Noncardiac Chest Pain (ED) Additional Instructions: You have been evaluated in the emergency department today for a nosebleed. The bleeding was controlled in the ER with medication. The bleeding was most likely caused by dry and fragile skin inside your nose due to cocaine use. Avoid cocaine use to prevent additional bleeding. You should apply bacitracin or vaseline to the insides of your nostrils twice daily. Please follow-up with your primary care physician within 2 days. Return to the emergency department if you experience worsening or uncontrolled bleeding, shortness of breath, feeling lightheaded or dizzy, loss of consciousness, fainting, nausea or vomiting, chest pain, or for any other concerning symptoms. You were also evaluated in the emergency department today for chest pain. 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 Please schedule an appointment for follow-up with your primary care physician as soon as possible. Return to the emergency department if you experience worsening or uncontrolled chest pain, shortness of breath, lightheadedness, feeling faint, loss of consciousness, nausea, vomiting, or any other concerning symptoms. Prescriptions: No Action azithromycin 250 mg tablet 250 mg PO DAILY 4 Days Qty: 4 0RF prednisone 50 mg tablet 50 mg PO DAILY Qty: 4 0RF ketorolac 0.5 % drops 1 drp ophthalmic (eye) QID Qty: 5 0RF albuterol sulfate [ProAir HFA] 90 mcg/actuation HFA aerosol inhaler 2 puff inhalation Q6H PRN (Reason: shortness of breath or wheezing) Qty: 18 2RF prednisone 20 mg tablet 40 mg PO DAILY Qty: 10 0RF codeine-guaifenesin 10-100 mg/5 mL liquid 10 ml PO Q4-6H PRN (Reason: cough) Qty: 237 0RF ondansetron HCl [Zofran] 4 mg tablet 4 mg PO Q8H PRN (Reason: nausea and vomiting) Qty: 14 0RF acetaminophen-codeine 300-30 mg tablet 1 tab PO Q8H PRN (Reason: pain) Qty: 10 0RF lorazepam [Ativan] 1 mg tablet 1 mg PO TID PRN (Reason: anxiety) Qty: 10 0RF fluconazole [Diflucan] 150 mg tablet 150 mg PO Q3D Qty: 2 0RF cephalexin 500 mg capsule 500 mg PO Q6H 7 Days Qty: 28 0RF doxycycline hyclate 100 mg tablet 100 mg PO BID 7 Days Qty: 14 0RF doxycycline hyclate 100 mg tablet 100 mg PO BID Qty: 14 0RF doxycycline hyclate 100 mg tablet 100 mg PO BID Qty: 14 0RF Print Language: Bhutanese
[2024-04-10 08:58] LABS: D Dimer High Sensitivity < 150 NG/ML
[2024-04-10 09:11] LABS: Troponin-I High Sensitivity < 2.7 ng/L (<3.5-35.0)
[2024-04-10 10:19] VITALS: BP 126/81; PULSE 71; RESP 16; TEMP 36.4; O2SAT 97
[2024-04-10] MEDS: Phenylephrine HCl 0.5 % Nasal 15 ML SPRBTL 2 SPRAY NOSTRIL-B (10:59)
[2024-04-10 11:48] LABS: Troponin-I High Sensitivity < 2.7 ng/L (<3.5-35.0)
[2024-04-10 12:01] VITALS: BP 116/81; PULSE 78; RESP 16; TEMP 36.3; O2SAT 96
== END 2024-04-10 12:06 | disposition home or self-care (01) ==
PROVIDERS: Registered Nurse Emergency; Emergency Provider Emergency Medicine; PCP Internal Medicine Geriatric Medicine
DX: R04.0 Epistaxis (principal); R07.89 Other chest pain; F14.90 Cocaine use, unspecified, uncomplicated; F17.210 Nicotine dependence, cigarettes, uncomplicated; Z79.899 Other long term (current) drug therapy
CPT/HCPCS: 36415; 71046; 80053; 84484; 85025; 85379; 93005; 99284

== ENCOUNTER 2024-06-02 14:48 | Outpatient (REF) | payer OTHER, SELFPAY ==
[2024-06-02 17:02] LABS: MANUAL DIFF FLAG NO
[2024-06-02 17:09] LABS: Basophils Percent Auto 0.8 % (0-2); Eosinophils Absolute Auto 0.4 X10*3/uL (0.0-0.4); Eosinophils Percent Auto 7.4 % (0-4); Hemoglobin 15.4 g/dl (14.0-18.0); Imm Gran Abs Auto 0.01 X10*3/uL (0.00-0.03); Imm Gran Pct Auto 0.2 % (0.0-0.4); Lymphocytes Absolute Auto 1.7 X10*3/uL (1.2-4.9); Lymphocytes Percent Auto 32.4 % (20-40); Mean Corpuscular Hemoglobin 30.4 pg (27.0-33.0); Mean Corpuscular Volume 86.8 fL (80.0-98.0); Mean Platelet Volume 9.8 fL (9.4-12.4); Monocytes Absolute Auto 0.4 X10*3/uL (0.1-1.2); Monocytes Percent Auto 7.6 % (2-11); Neutrophils Absolute Auto 2.7 x10*3/uL (2.0-8.3); Neutrophils Percent Auto 51.6 % (45-73); Platelet Count 291 X10*3/uL (160-400); Red Blood Count 5.07 X10*6/uL (4.60-5.80); Red Cell Distribution Width 12.9 % (11.0-16.0); White Blood Count 5.2 X10*3/uL (4.8-10.8)
[2024-06-02 17:35] LABS: Alanine Aminotransferase 20 U/L (0-40); Albumin Level 4.4 g/dL (3.5-5.0); Alkaline Phosphatase 99 U/L (39-117); Anion Gap 12 (12-20); Aspartate Amino Transferase 23 U/L (5-37); Bilirubin Total 0.4 mg/dL (0.0-1.0); Blood Urea Nitrogen 13 mg/dL (9-16); Carbon Dioxide 26 mmol/L (22-29); Chloride 107 mmol/L (96-108); Estimated Glomerular Filt Rate > 60; Glucose Random 78 mg/dL (60-115); Potassium 4.1 mmol/L (3.3-5.1); Sodium 141 mmol/L (135-145); Total Protein 6.6 g/dL (6.5-8.0)
[2024-06-03 14:08] LABS: HIV RNA PCR Qn Copies <20 DETECTED copies/mL (NOT DETECTED); HIV RNA PCR Qn Log Copies <1.30 DETECTED (NOT DETECTED)
[2024-06-05 03:24] LABS: TS Negative Control Passed; TS Panel A 0; TS Panel B 0; TS Positive Control Passed; TSpotTB Negative (Negative)
[2024-06-05 17:53] LABS: Absolute CD3 Count 1258 cells/uL (840-3060); Absolute CD4 Count 684 cells/uL (490-1740); Absolute CD8 Count 530 cells/uL (180-1170); Absolute Lymphocytes 1578 cells/uL (850-3900); CD4 CD8 Ratio 1.29 (0.86-5.00); Percent CD3 Cells 80 % (57-85); Percent CD4 Cells 43 % (30-61); Percent CD8 Cells 34 % (12-42)
== END 2024-06-02 14:49 | disposition home or self-care (01) ==
LOC: HO.HHCL 14:48
PROVIDERS: Visit Provider Internal Medicine
DX: B20 Human immunodeficiency virus [HIV] disease (principal)
CPT/HCPCS: 36415; 80053; 85025; 86359; 86360; 86481; 87536

== ENCOUNTER 2024-08-25 13:33 | Outpatient (REF) | payer OTHER, SELFPAY ==
[2024-08-29 17:43] LABS: C.Trachomatis RNA TMA, Rectal NOT DETECTED; N.Gonorrhoeae RNA TMA, Rectal NOT DETECTED
[2024-08-29 19:18] LABS: C. Trachomatis RNA TMA, Throat NOT DETECTED; N. gonorrhoeae RNA TMA, Throat NOT DETECTED
== END 2024-08-25 13:34 | disposition home or self-care (01) ==
LOC: HO.HHCLNP 13:33
PROVIDERS: Visit Provider Internal Medicine
DX: Z21 Asymptomatic human immunodeficiency virus [HIV] infection status (principal)
CPT/HCPCS: 87491; 87591; 88112

== ENCOUNTER 2024-12-02 12:06 | Outpatient (REF) | payer OTHER, SELFPAY ==
--- OUTSIDE RECORDS SUMMARY | 2024-12-02 12:56 | XMS_ITS | Clinical Summary ---
Author Organization [facility] ity Address [address] [place] [address] Care Team Providers Care Medical Staff Specialist Name Role Phone Unavailable Primary Care Provider Unavailabl e Social History Tobacco Use Types Packs/Day Years Used Date Smoking Tobacco: Never Assessed Sex and Gender Information Value Date Recorded Sex Assigned at Not on file Legal Sex Male 3:58 AM EST Gender Identity Not on file Sexual Orientation Not on file Plan of Treatment Health Maintenance Due Date Last Done Comments DTaP,Tdap,and Td Vaccines (1 - Tdap) 11/08/2011 Hepatitis B Vaccines (1 of 3 - 19+ 3-dose series) 11/08/2011 COVID-19 Vaccine (2023-2 5 season) 2024 Influenza Vaccine (Season Ended) 2025 HIB Vaccines Aged Out No longer eligi ble based on patient's age to complete this topic HPV Vaccines Aged Out No longer eligi ble based on patient's age to complete this topic Hepatitis A Vaccines Aged Out No long er eligible based on patient's age to complete this topic IPV Vaccines Aged Out No longer eligi ble based on patient's age to complete this topic MMR Vaccines Aged Out No longer eligi ble based on patient's age to complete this topic Meningococcal ACWY Vaccine Aged Out N o longer eligible based on patient's age to complete this topic Meningococcal B Vaccine Aged Out No l onger eligible based on patient's age to complete this topic Pneumococcal Vaccine: Pediat rics (0 to 5 Years) and At-Risk Patients (6 to 64 Years) Aged Out No longer eligible b ased on patient's age to complete this topic RSV Immunization Patients Un gallo 20 months Aged Out No longer eligible b ased on patient's age to complete this topic Varicella Vaccines Aged Out No longer eligible based on patient's age to complete this topic
[2024-12-02 13:19] LABS: MANUAL DIFF FLAG NO
[2024-12-02 13:32] LABS: Basophils Percent Auto 0.7 % (0-2); Eosinophils Absolute Auto 0.3 X10*3/uL (0.0-0.4); Eosinophils Percent Auto 5.9 % (0-4); Hematocrit 44.5 % (42.0-52.0); Hemoglobin 15.8 g/dl (14.0-18.0); Imm Gran Abs Auto 0.01 X10*3/uL (0.00-0.03); Imm Gran Pct Auto 0.2 % (0.0-0.4); Lymphocytes Absolute Auto 1.9 X10*3/uL (1.2-4.9); Lymphocytes Percent Auto 42.1 % (20-40); Mean Corpuscular HGB Conc 35.5 g/dl (31.0-36.0); Mean Corpuscular Volume 87.3 fL (80.0-98.0); Mean Platelet Volume 9.4 fL (9.4-12.4); Monocytes Absolute Auto 0.3 X10*3/uL (0.1-1.2); Monocytes Percent Auto 7.1 % (2-11); Neutrophils Absolute Auto 1.9 x10*3/uL (2.0-8.3); Platelet Count 277 X10*3/uL (160-400); Red Cell Distribution Width 12.7 % (11.0-16.0); White Blood Count 4.4 X10*3/uL (4.8-10.8)
[2024-12-02 13:48] LABS: Alanine Aminotransferase 14 U/L (0-40); Albumin Level 4.4 g/dL (3.5-5.0); Alkaline Phosphatase 96 U/L (39-117); Anion Gap 9 (12-20); Aspartate Amino Transferase 15 U/L (5-37); Bilirubin Total 0.7 mg/dL (0.0-1.0); Blood Urea Nitrogen 15 mg/dL (9-16); Calcium 9.2 mg/dL (8.4-10.2); Carbon Dioxide 25 mmol/L (22-29); Chloride 109 mmol/L (96-108); Cholesterol 152 mg/dL (<200); Estimated Glomerular Filt Rate > 60; Glucose Random 84 mg/dL (60-115); HDL Cholesterol 42 mg/dL (>40); LDL Cholesterol Calculated 87 mg/dL (<100); Potassium 4.1 mmol/L (3.3-5.1); Sodium 139 mmol/L (135-145); Total Protein 6.6 g/dL (6.5-8.0); Triglycerides 115 mg/dL (<150)
[2024-12-02 14:02] LABS: Reflex LDLD? No
[2024-12-02 14:07] LABS: ~HepC Num1 0.09 S/CO (0.00-0.79); ~Hepatitis C Antibody Nonreactive (Nonreactive)
[2024-12-04 17:14] LABS: RPR Rapid Plasma Reagin NON-REACTIVE (NON-REACTIVE)
[2024-12-05 18:18] LABS: HIV RNA PCR Qn Copies <20 DETECTED copies/mL (NOT DETECTED); HIV RNA PCR Qn Log Copies <1.30 DETECTED (NOT DETECTED)
[2024-12-07 15:03] LABS: Absolute CD3 Count 1464 cells/uL (840-3060); Absolute CD4 Count 903 cells/uL (490-1740); Absolute CD8 Count 565 cells/uL (180-1170); Absolute Lymphocytes 1909 cells/uL (850-3900); Percent CD3 Cells 77 % (57-85); Percent CD4 Cells 47 % (30-61); Percent CD8 Cells 30 % (12-42)
== END 2024-12-02 12:07 | disposition home or self-care (01) ==
LOC: HO.HHCL 12:06
PROVIDERS: Internal Medicine; Visit Provider Internal Medicine
DX: Z21 Asymptomatic human immunodeficiency virus [HIV] infection status (principal); Z20.2 Contact with and (suspected) exposure to infections with a predominantly sexual mode of transmission
CPT/HCPCS: 36415; 80053; 80061; 85025; 86359; 86360; 86592; 86803; 87536

== ENCOUNTER 2025-07-27 13:48 | Outpatient (REF) | payer OTHER, SELFPAY ==
[2025-07-27 16:05] LABS: MANUAL DIFF FLAG NO
[2025-07-27 16:13] LABS: Hematocrit 42.4 % (42.0-52.0); Hemoglobin 14.9 g/dl (14.0-18.0); Imm Gran Abs Auto 0.01 X10*3/uL (0.00-0.03); Imm Gran Pct Auto 0.2 % (0.0-0.4); Lymphocytes Absolute Auto 1.7 X10*3/uL (1.2-4.9); Mean Corpuscular HGB Conc 35.1 g/dl (31.0-36.0); Mean Corpuscular Hemoglobin 30.8 pg (27.0-33.0); Mean Corpuscular Volume 87.6 fL (80.0-98.0); NRBC Abs Auto 0.000 X10*3/uL (0.0-0.012); NRBC Pct Auto 0.0 /100WBC (0.0-0.2); Platelet Count 364 X10*3/uL (160-400); Red Blood Count 4.84 X10*6/uL (4.60-5.80); White Blood Count 5.6 X10*3/uL (4.8-10.8)
[2025-07-27 16:39] LABS: Alanine Aminotransferase 22 U/L (0-40); Albumin Level 4.5 g/dL (3.5-5.0); Alkaline Phosphatase 112 U/L (39-117); Anion Gap 10 (12-20); Aspartate Amino Transferase 20 U/L (5-37); Blood Urea Nitrogen 19 mg/dL (9-16); Calcium 9.0 mg/dL (8.4-10.2); Carbon Dioxide 28 mmol/L (22-29); Chloride 108 mmol/L (96-108); Estimated Glomerular Filt Rate > 60; Potassium 4.6 mmol/L (3.3-5.1); Sodium 141 mmol/L (135-145); Total Protein 7.0 g/dL (6.5-8.0)
--- OUTSIDE RECORDS SUMMARY | 2025-07-27 18:03 | XMS_ITS | Clinical Summary ---
Author Organization [facility] ity Address [address] [place] [address] Care Team Providers Care Fly Tier Name Role Phone Unavailable Primary Care Provider [...] of 3 - 19+ 3-dose series) 11/08/2011 HPV Vaccines (1 - 3-dose SCD M series) 11/08/2019 Depression Screening 08/10/2024 COVID-19 Vaccine (1 - 2024-2 6 season) 2025 Influenza Vaccine (#1) 2025 RSV Immunization Adult Patie nts (1 - 1-dose 75+ series) 11/08/2067 HIB Vaccines Aged Out No longer eligi [...] 5 Years) and At-Risk Patients (6 to 49 Years) Aged Out No longer eligible b ased on patient's age to complete this topic RSV Immunization Patients Un gallo 20 months Aged Out No longer eligible b ased on patient's age to complete this topic Varicella Vaccines Aged Out No longer eligible based on patient's age to complete this topic
[2025-07-28 08:34] LABS: HBS Num1 8.06 mIU/mL (0-7.99); HBc Num1 0.07 S/CO (0.00-0.79); HBsAGNum1 0.54 S/CO (0.00-0.99); Hepatitis B Surface Antigen Negative (Negative)
[2025-07-28 08:37] LABS: ~Hepatitis A Antibody IgG 0.74 S/CO (0.00-0.99)
[2025-07-28 10:41] LABS: HBS Num2 8.03 mIU/mL (0-7.99); HBS Num3 7.60 mIU/mL (0-7.99); ~Hepatitis B Surface Antibody GRAYZONE (Nonreactive)
[2025-07-29 00:13] LABS: HIV RNA PCR Qn Copies 39 copies/mL (NOT DETECTED); HIV RNA PCR Qn Log Copies 1.59 (NOT DETECTED)
== END 2025-07-27 13:49 | disposition home or self-care (01) ==
LOC: HO.HHCL 13:48
PROVIDERS: PCP Internal Medicine Geriatric Medicine; Visit Provider Internal Medicine
DX: Z11.1 Encounter for screening for respiratory tuberculosis (principal); B20 Human immunodeficiency virus [HIV] disease
CPT/HCPCS: 36415; 80053; 85025; 86359; 86360; 86481; 86592; 86704; 86706; 86708; 87340; 87536